=== PATIENT | female | born 1970 | race African-American/Black ===

== ENCOUNTER → 2020-09-06 15:33 | Outpatient (BNVA) | payer OTHER, SELFPAY | PROVIDERS: PCP Internal Medicine; Visit Provider Internal Medicine Pulmonary Disease | DX: R94.2 Abnormal results of pulmonary function studies (principal); R93.89 Abnormal findings on diagnostic imaging of other specified body structures; Z91.018 Allergy to other foods | CPT/HCPCS: 99202 ==

== ENCOUNTER 2021-01-16 13:33 | Outpatient (REF) | payer OTHER, SELFPAY ==
--- NOTE | ~2021-01-16 | XR_ITS ---
EXAMINATION: XR LUMBOSACRAL SPINE WITH OBLIQUES CLINICAL INFORMATION: Low back pain COMPARISON: CTA chest 05/13/2020 radiographs dorsal spine 07/03/2017 TECHNIQUE: Lumbar spine is imaged in 5 views: AP, lateral, lateral view coned to lumbosacral junction, and bilateral oblique. FINDINGS: There is normal lumbar segmentation with 5 nonrib-bearing lumbar vertebrae of normal height and normal lumbar lordosis. There is no lumbar vertebral compression, spondylolisthesis, disc narrowing, or destructive process. There are no erosive changes. The SI joints are unremarkable. Oblique views show no spondylolysis. There is a 0.7 cm calcification overlying mid left renal fossa and a 0.8 cm calcification overlying lower pole right renal fossa. Scattered calcified phleboliths are present in the pelvis. Bowel gas is unremarkable. XR/XR lumbar spine 4V min IMPRESSION: 1. No disc narrowing, vertebral compression, spondylolisthesis, or spondylolysis. 2. Suspect bilateral renal calculi.
== END 2021-01-16 13:34 | disposition home or self-care (01) ==
LOC: HO.XRAY 13:33
PROVIDERS: PCP Internal Medicine; Visit Provider Internal Medicine
DX: M54.5 Low back pain (principal)
CPT/HCPCS: 72110

== ENCOUNTER 2021-05-01 11:51 | Outpatient (REF) | payer OTHER, SELFPAY ==
--- NOTE | ~2021-05-01 | US_ITS ---
EXAMINATION: US RETROPERITONEAL LIMITED (RENAL ONLY) CLINICAL INFORMATION: Low back pain. COMPARISON: Ultrasound renals only dated 07/18/2017. TECHNIQUE: Real-time imaging of the kidneys. FINDINGS: RIGHT KIDNEY: 11.0 x 5.4 x 4.8 cm (SAG x AP x TRV). The kidney is normal in size, contour, and echogenicity. Renal cortical thickness is normal. No focal parenchymal lesions or hydronephrosis. There is nonobstructive echogenic stone lower pole measuring 1.1 x 0.4 cm LEFT KIDNEY: 10.5 x 6.0 x 4.8 cm (SAG x AP x TRV). The kidney is normal in size, contour, and echogenicity. Renal cortical thickness is normal. No focal parenchymal lesions or hydronephrosis. There are several echogenic foci are clustered together measuring 1.5 x 1.0 cm in midpole but no focal caliectasis seen. The bladder is unremarkable. US/US renal BI IMPRESSION: Nonobstructive echogenic lower pole right kidney and a cluster stones in the midpole left kidney but no caliectasis or hydronephrosis seen.
--- NOTE | ~2021-05-01 | MM_ITS ---
EXAMINATION: MM SCREENING DIGITAL BREAST TOMOSYNTHESIS, BILATERAL CLINICAL INFORMATION: Screening. Asymptomatic. The lifetime risk of breast cancer based on the Tyrer-Cuzick Model is 5.6%. COMPARISON: Mammography: April 26, 2020 and studies going back to July 21, 2014 TECHNIQUE: Digital breast tomosynthesis is performed in both the craniocaudal and mediolateral oblique views along with computer-aided detection (CAD). Synthesized 2D images are generated from the tomosynthesis. FINDINGS: The breasts are extremely dense, which lowers the sensitivity of mammography (ACR BI-RADS breast composition Category d). There is dense nodular breast parenchyma present with some bilateral well-circumscribed densities with cysts seen on previous ultrasound study of the left breast. No suspicious grouping of microcalcifications identified. No irregularly marginated mass is seen. MM/MM tomosynthesis screening BI IMPRESSION: There are no significant changes from prior study. Circumscribed densities consistent with cysts. ASSESSMENT: BI-RADS 2: Benign RECOMMENDATION: Routine annual mammography screening. This patient's information was entered into a reminder system with a target due date for their next mammogram.
== END 2021-05-01 11:52 | disposition home or self-care (01) ==
LOC: HO.MAMMO 11:51
PROVIDERS: PCP Internal Medicine; Visit Provider Internal Medicine
DX: Z12.31 Encounter for screening mammogram for malignant neoplasm of breast (principal); N28.89 Other specified disorders of kidney and ureter; M54.5 Low back pain
CPT/HCPCS: 76775; 77063; 77067

== ENCOUNTER 2022-03-09 15:29 | Outpatient (REF) | payer OTHER, SELFPAY ==
--- NOTE | ~2022-03-09 | MR_ITS ---
MR CERVICAL SPINE WITHOUT IV CONTRAST CLINICAL INFORMATION: Cervicalgia/disc degeneration. COMPARISON: None TECHNIQUE: MRI of the cervical spine was obtained using routine sequences without contrast. FINDINGS: Straightening the cervical lordosis. Partially imaged rightward convex scoliotic curvature of the thoracic spine. The vertebral body heights are maintained. Mild disc volume loss at C5-C6 and C6-C7. There is no bone marrow edema. There are no acute fractures. The craniocervical junction is unremarkable. Cervical arterial flow voids are maintained. There are no cord signal changes. No significant extraspinal soft tissue findings. The partially imaged posterior fossa is unremarkable. C2-C3: Advanced left-sided facet arthropathy results in mild left-sided foraminal encroachment. C3-C4: Disc osteophyte without central canal stenosis. Uncovertebral joint hypertrophy and hypertrophic facet arthropathy result in mild bilateral foraminal encroachment. C4-C5: Slight annular disc bulge. No central canal stenosis and no foraminal stenosis. C5-C6: Disc osteophyte mildly narrows the central canal. Advanced left-sided uncovertebral joint hypertrophy and hypertrophic facet arthropathy result in severe left-sided foraminal stenosis. C6-C7: A shallow right paracentral disc protrusion mildly narrows the central canal. Advanced left-sided uncovertebral joint hypertrophy and hypertrophic facet arthropathy result in moderate to severe left-sided foraminal stenosis. C7-T1: A shallow central disc protrusion mildly narrows the central canal. No foraminal stenosis. Shallow disc protrusions at T1-T2, T2-T3, and T3-T4 mildly narrow the central canal at these levels. MR/MR cervical spine wo con IMPRESSION: Multilevel cervical spondylosis. Spondylitic changes result in severe left C5-C6 and moderate to severe left C6-C7 foraminal stenosis.
== END 2022-03-09 15:30 | disposition home or self-care (01) ==
LOC: HO.MRI 15:29
PROVIDERS: Visit Provider Internal Medicine
DX: M50.30 Other cervical disc degeneration, unspecified cervical region (principal); M54.9 Dorsalgia, unspecified
CPT/HCPCS: 72141

== ENCOUNTER 2022-05-02 15:09 | Outpatient (REF) | payer OTHER, SELFPAY ==
--- NOTE | ~2022-05-02 | MM_ITS ---
EXAMINATION: MM SCREENING DIGITAL BREAST TOMOSYNTHESIS, BILATERAL CLINICAL INFORMATION: Screening. Asymptomatic. The lifetime risk of breast cancer based on the Tyrer-Cuzick Model is 6%. COMPARISON: Mammography: 05/01/2021, 04/26/2020, 12/17/2018, targeted left breast ultrasound 04/16/2019. TECHNIQUE: Digital breast tomosynthesis is performed in both the craniocaudal and mediolateral oblique views along with computer-aided detection (CAD). Synthesized 2D images are generated from the tomosynthesis. FINDINGS: The breasts are heterogeneously dense, which may obscure small masses (ACR BI-RADS breast composition Category c). There are no significant masses, abnormal calcifications, or other abnormalities. Parenchymal pattern is similar to prior studies. There are scattered benign round calcifications in each breast. Intramammary node again seen posterior outer left breast on CC view and there is biopsy clip marker mid upper outer left breast. MM/MM tomosynthesis screening BI IMPRESSION: No mammographic evidence of malignancy. ASSESSMENT: BI-RADS 2: Benign RECOMMENDATION: Routine annual mammography screening. This patient's information was entered into a reminder system with a target due date for their next mammogram.
== END 2022-05-02 15:10 | disposition home or self-care (01) ==
LOC: HO.MAMMO 15:09
PROVIDERS: PCP Internal Medicine; Visit Provider Internal Medicine
DX: Z12.31 Encounter for screening mammogram for malignant neoplasm of breast (principal)
CPT/HCPCS: 77063; 77067

== ENCOUNTER 2023-05-08 10:21 | Outpatient (REF) | payer MEDICAID, SELFPAY ==
--- NOTE | ~2023-05-08 | MM_ITS ---
EXAMINATION: MM SCREENING DIGITAL BREAST TOMOSYNTHESIS, BILATERAL CLINICAL INFORMATION: Screening. Asymptomatic. The lifetime risk of breast cancer based on the Tyrer-Cuzick Model is 5.6%. COMPARISON: Mammography: This study is compared with prior exams dating back to 2019. TECHNIQUE: Digital breast tomosynthesis is performed in both the craniocaudal and mediolateral oblique views along with computer-aided detection (CAD). Synthesized 2D images are generated from the tomosynthesis. FINDINGS: The breasts are heterogeneously dense, which may obscure small masses (ACR BI-RADS breast composition Category c). There are no significant masses, abnormal calcifications, or other abnormalities. There is a tissue marker in the upper outer quadrant of the left breast from prior benign percutaneous biopsy. MM/MM tomosynthesis screening BI IMPRESSION: No mammographic evidence of malignancy. ASSESSMENT: BI-RADS BI-RADS 2 - Benign Findings RECOMMENDATION: Routine annual mammography screening. 1 year F/U This examination should not preclude the clinical evaluation of a suspicious palpable abnormality. This patient's information was entered into a reminder system with a target due date for their next mammogram.
== END 2023-05-08 10:22 | disposition home or self-care (01) ==
LOC: HO.MAMMO 10:21
PROVIDERS: PCP Internal Medicine; Visit Provider Internal Medicine
DX: Z12.31 Encounter for screening mammogram for malignant neoplasm of breast (principal)
CPT/HCPCS: 77063; 77067

== ENCOUNTER → 2023-05-08 10:30 | Outpatient (BNV) | payer MEDICAID, SELFPAY | PROVIDERS: PCP Internal Medicine; Visit Provider Radiology Diagnostic Radiology | DX: Z12.31 Encounter for screening mammogram for malignant neoplasm of breast (principal) | CPT/HCPCS: 77063; 77067 ==

== ENCOUNTER 2023-09-18 09:33 | Outpatient (REF) | payer MEDICAID, SELFPAY ==
[2023-09-18 11:45] LABS: Anion Gap 12 (12-20); Blood Urea Nitrogen 9 mg/dL (9-16); Calcium 9.7 mg/dL (8.4-10.2); Carbon Dioxide 29 mmol/L (22-29); Chloride 104 mmol/L (96-108); Estimated Glomerular Filt Rate > 60; Glucose Random 116 mg/dL (60-115); Sodium 141 mmol/L (135-145)
[2023-09-18 11:54] LABS: Cholesterol 199 mg/dL (<200); HDL Cholesterol 56 mg/dL (>40); LDL Cholesterol Calculated 129 mg/dL (<100); Triglycerides 70 mg/dL (<150)
[2023-09-18 12:14] LABS: Vitamin D 25-OH Total 21.7 ng/mL (>30)
[2023-09-18 12:24] LABS: Creatinine Urine 69.21 mg/dL; Microalbumin Urine < 5.0 mg/L
[2023-09-18 12:53] LABS: Reflex LDLD? No
== END 2023-09-18 09:34 | disposition home or self-care (01) ==
LOC: HO.HHCL 09:33
PROVIDERS: Visit Provider Internal Medicine
DX: E11.9 Type 2 diabetes mellitus without complications (principal); I10 Essential (primary) hypertension
CPT/HCPCS: 36415; 80048; 80061; 82043; 82306; 82570

== ENCOUNTER 2024-05-13 10:28 | Outpatient (REF) | payer MEDICAID, SELFPAY ==
--- NOTE | ~2024-05-13 | MM_ITS ---
EXAMINATION: MM SCREENING DIGITAL BREAST TOMOSYNTHESIS, BILATERAL CLINICAL INFORMATION: Screening. Asymptomatic. COMPARISON: Mammography: This study is compared with prior exams dating back to 2019. TECHNIQUE: Digital breast tomosynthesis is performed in both the craniocaudal and mediolateral oblique views along with computer-aided detection (CAD). Synthesized 2D images are generated from the tomosynthesis. FINDINGS: There are scattered areas of fibroglandular density (ACR BI-RADS breast composition Category b). There are no significant masses, abnormal calcifications, or other abnormalities. There is a biopsy tissue marker in the left breast. MM/MM tomosynthesis screening BI IMPRESSION: No mammographic evidence of malignancy. ASSESSMENT: BI-RADS BI-RADS 2 - Benign Findings RECOMMENDATION: Routine annual mammography screening. 1 year F/U This examination should not preclude the clinical evaluation of a suspicious palpable abnormality. This patient's information was entered into a reminder system with a target due date for their next mammogram.
== END 2024-05-13 10:29 | disposition home or self-care (01) ==
LOC: HO.MAMMO 10:28
PROVIDERS: PCP Internal Medicine; Visit Provider Internal Medicine
DX: Z12.31 Encounter for screening mammogram for malignant neoplasm of breast (principal)
CPT/HCPCS: 77063; 77067

== ENCOUNTER → 2024-05-13 10:30 | Outpatient (BNV) | payer MEDICAID, SELFPAY | PROVIDERS: PCP Internal Medicine; Visit Provider Radiology Diagnostic Radiology | DX: Z12.31 Encounter for screening mammogram for malignant neoplasm of breast (principal) | CPT/HCPCS: 77063; 77067 ==

== ENCOUNTER 2025-02-24 12:11 | Outpatient (AMB) | payer MEDICAID, SELFPAY ==
--- NOTE | 2025-02-24 12:18 | MHC.OFFVIS ---
Vital Signs 02/24/25 12:23 Height 5 ft 5 in Weight 147 lb BMI 24.5 BP 123/74 Blood Pressure Location Lt brachial Position Sitting Pulse 82 Intake Visit Reasons: [place] screening Intake Note: New consult for 1st pre Colonoscopy screening. Patient denies any GI issues. It Engineer Required: Yes It Engineer Name: [facility] [place] Accompanied by: Self / Same As Patient Allergies sesame seed [SESAME SEED] Allergy (Unknown, Verified 02/24/25 12:19) ANAPHYLAXIS Medication List - Last Reconciled 02/24/25 by Che Comer CNP ibuprofen 400 mg PO Q8H lisinopril 10 mg PO DAILY HPI HPI [place] screening: Details: Patient is a 54-year-old female with PMH of hypertension, DMII and insomnia. She was referred by her PCP for colonoscopy screening. Pt is here today for index colonoscopy pre-screening. She denies any GI symptoms/concerns. Shares her BP is well controlled with anti-hypertensive. States she is now considered pre-diabetes after lifestyle changes Patient denies: fever/chills, n/v, appetite changes, regurgitation, unintentional wt loss, ab pain, dysphasia, or melena/hematochezia. Social hx: socially-typically 1 beer denies recreational drug use non-smoker family hx -denies colon CA hx of FDR -Maternal Aunt, passed from vaginal CA -sister, passed from breast CA denies personal hx of CA denies significant cardiopulmonary history tolerated anesthesia in the past without difficulty. [facility] Medical History (Updated 02/24/25 @ 13:11 by Che Comer CNP) Diabetes Hypertension Encounter for screening colonoscopy Family History (Updated 02/24/25 @ 13:21 by Che Comer CNP) Maternal Aunt Recurrent vaginal squamous cell carcinoma Sister Breast cancer Social History (Updated 02/24/25 @ 13:22 by Che Comer CNP) Patient Tobacco Use Status: Never used Tobacco Review of Systems Const Reports as per HPI ENT Reports as per HPI Card Reports as per HPI Resp Reports as per HPI GI Reports as per HPI Reports as per HPI Physical Exam Vital Signs: Last Vital Signs Pulse 82 02/24/25 12:23 BP 123/74 02/24/25 12:23 BMI result Body Mass Index 24.5 Const General: healthy appearing, no acute distress and well developed Nutritional Appearance: well nourished Orientation/consciousness: patient oriented x3 HEENT Head: Yes normal to inspection, Yes normocephalic and Yes atraumatic Face and sinus: Yes normal facial exam Eyes General: appearance normal, both eyes and all related structures Neck Neck: Yes normal visual inspection Resp Effort & Inspection: normal respiratory effort, able to speak in complete sentences, no tracheal deviation and symmetric chest movement Auscultation: clear to auscultation bilaterally Cardio Jugular venous distension: no JVD Rate: regular rate Rhythm: regular rhythm Heart sounds: S1 normal heart sound present, S2 normal heart sound present, no gallops and no murmurs GI Inspection: Yes normal to inspection and No distended Palpation (GI): Soft to palpation, not firm, nontender and No hepatosplenomegaly present Auscultation: normal bowel sounds Neuro General: patient oriented x3 Gait exam (Neuro): Normal gait present Psych Appearance: grossly normal Mental Status: mental status grossly normal Speech and movement: Normal speech and movement present Affect: normal affect Attitude: cooperative Thought process: Normal thought process present Thought content: Normal thought content present Insight: Good insight present (Psych) Judgement: Good judgement present (Psych) Assessment & Plan Assessment & Plan (1) Encounter for screening colonoscopy: Code(s): Z12.11 - Encounter for screening for malignant neoplasm of colon Category: Medical Plan: She is asymptomatic. Due for index screening colonoscopy. Reviewed prep and procedure expectations. She understands to hold ibuprofen at least 7 days before procedure. Prep Rx'd to preferred pharmacy. (2) Hypertension: Code(s): I10 - Essential (primary) hypertension Category: Medical Qualifiers: Hypertension type: unspecified Qualified Code(s): I10 - Essential (primary) hypertension Plan: BP at goal per guidelines. Continue lisinopril 10 mg. Risks reviewed of taking NSAIDs with hypertension diagnosis. Encouraged to consider Tylenol Arthritis instead. Managed by PCP. (3) Diabetes: Code(s): E11.9 - Type 2 diabetes mellitus without complications Category: Medical Qualifiers: Diabetes mellitus type: type 2 Diabetes mellitus termite exterminator insulin use: without termite exterminator use Diabetes mellitus complication status: without complication Qualified Code(s): E11.9 - Type 2 diabetes mellitus without complications Plan: Per PCP referral note A1c 6.08 December 2023. Managed by PCP. Plan Follow-up after colonoscopy or sooner as needed. Time: I spent a total of 45 minutes on the date of encounter which includes: Preparing to see the patient (reviewed previous documentation, test results and medical history) Performing a medically appropriate exam and/or evaluation Ordering medications, tests, and procedures Documenting clinical information in the health record Medications: New bisacodyl per colonoscopy instructions 5 mg PO ONCE 1 day 3 tabs 0RF polyethylene glycol 3350 (Miralax) per colonoscopy prep instructions 238 grams PO ONCE 238 grams 0RF Coding Level of Care Code New Pt Est Pt Level 3 (07785) Patient Type New Diagnoses Encounter for screening colonoscopy Z12.11 Hypertension, unspecified type I10 Hypertension type: unspecified Type 2 diabetes mellitus without complication, without long-term current use of insulin E11.9 Diabetes mellitus type: type 2 Diabetes mellitus snf insulin use: without termite exterminator use Diabetes mellitus complication status: without complication
[2025-02-24 12:23] VITALS: BP 123/74; PULSE 82; BMI 24.5
--- OUTSIDE RECORDS SUMMARY | 2025-02-24 14:30 | XMS_ITS | Encounter Summary ---
Author Organization [facility] Address [address] [place] [address] Care Team Providers Care Roller Inspector And Mender Name Role Phone Faith Malcolm MD Primary Care Provider + Tony Jensen PharmD Unavailable [phone] Encounter Details Date Type Department Care Team (Latest Contact Info) Description 11/11/2019 Abstract [facility] Dental, Provider, DDS Social History Tobacco Use Types Packs/Day Years Used Date Smoking Tobacco: Never Assessed Comments Unknown Sex and Gender Information Value Date Recorded Sex Assigned at Female 09/03/2022 10:31 AM EDT Legal Sex Female 10:31 AM EDT Gender Identity Female 09/03/2022 10:31 AM EDT Sexual Orientation Straight 09/03/2022 10 :31 AM EDT documented as of this encounter Plan of Treatment Upcoming Encounters Date Type Department Care Team ( st Contact Info) Description 03/09/2025 1:45 PM EDT Procedure Visit [facility] [address] [place] [phone] Korina Herbert CNM [address] [place] [phone] 05/18/2025 9:00 AM EDT Telemedicine [facility] [address] [place] [phone] Faith Malcolm MD [address] [place] [phone] documented as of this encounter Visit Diagnoses Not on filedocumented in this encounter Care Teams Roller Inspector And Mender Relationship Specialty Start Date End Date Faith Malcolm MD [address] [place] [address] PCP - General Family Medicine 11/13/16 Tony Jensen, DamionD [address] [place] [address] Pharmacist Internal Medicine 08/14/23 documented as of this encounter
--- OUTSIDE RECORDS SUMMARY | 2025-02-24 14:30 | XMS_ITS | Clinical Summary ---
Author Organization [employer] Address [address] [place] [address] Care Team Providers Care Commercial Driver Name Role Phone Zulay Malcolm MD Primary Care Provider + Tony Jensen PharmD Unavailable [phone] Allergies Active Allergy Reactions Criticality Noted Date Comments Sesame Seed Extract Allergy Skin Test Swelling High 01/13/2018 Throat swelling Medications acetaminophen (Tylenol) 500 MG tablet take 1 tablet by oral route every6 -8 hours as needed not to exceed 4 tablets per 24hrs 09/27/20 21 Active glucose blood (FREESTYLE LITE) test strip 06/27/20 20 Active latanoprost (Xalatan) 0.005 % ophthalmic solution PONGA NATIVIDAD GOTA EN LOS DOS OJOS AL ACOSTARSE 07/25/20 23 Active timolol (Timoptic) 0.5 % ophthalmic solution INSTILL 1 DROP BOTH EYES CADA MA ZULAY 12/27/19 24 Active traZODone (Desyrel) 50 MG tabletIndicatio ns:Adjustment insomnia Take 1/2 tab po Q 5pm and 1 tab po QHS 45 tablet 2 03/10/20 24 Active lisinopril 10 MG tabletIndicatio ns:Primary hypertension Take 1 tablet (10 mg) by mouth Once per day. 90 tablet 3 06/10/20 24 025 Active albuterol 108 (90 Base) MCG/ACT inhaler Inhale 2 puffs every 6 (six) hours if needed for wheezing. 18 g 10/12/20 24 025 Active fluticasone (Flonase) 50 MCG/ACT nasal spray Administer 1 spray into each nostril Once per day. 16 g 2 02/05/20 25 025 Active ibuprofen 600 MG tablet Take 1 tablet (600 mg) by mouth every 8 (eight) hours if needed for mild pain. 90 tablet 02/05/20 25 Active EPINEPHrine (EpiPen 2-Kasi) 0.3 MG/0.3ML injection syringe Inject 0.3 mL (0.3 mg) as directed 1 (one) time for 1 dose. 2 each 2 02/06/20 25 Active Blood Pressure kitIndications: Primary hypertension Used as directed 1 kit 02/06/20 25 Active EPINEPHrine (EpiPen 2-Kasi) 0.3 MG/0.3ML injection syringe Inject 0.3 mL (0.3 mg) as directed 1 (one) time for 1 dose. 0.3 mL 10/04/20 23 025 Discontinued(R eorder (will not trigger notification to Pharmacy)) ibuprofen 600 MG tablet TAKE 1 TAB EVERY 8 HOURS NEEDED FOR PAIN WITH FOOD AND NO ALCOHOL DIRECTED 02/21/20 24 025 Discontinued(R eorder (will not trigger notification to Pharmacy)) Active Problems Problem Noted Date Diagnosed Date Nasal congestion 02/04/2025 Assessment & Plan (02/04/2025 11:30 AM EDT): Most likely postnasal drip status post URI Use Flonase nightly and nasal saline as needed Screening for colorectal cancer 06/10/2024 Assessment & Plan (02/04/2025 11:28 AM EDT): She had a referral was sent last year, given information regarding GI office to make an appointment for colonoscopy Assessment & Plan (06/10/2024 2:58 PM EDT): - we dicussed about vascular colonoscopy vs cologuard, she agreed to be referred to colonoscopy - refer to GI Accessory breast tissue of axilla 06/10/2024 Assessment & Plan (06/10/2024 2:52 PM EDT): - reassurance, no evidence of abnormal lesions or LN - pt will re consult PRN to the walk-in clinic Mass of left axilla 03/10/2024 Assessment & Plan (03/10/2024 9:54 AM EDT): - unclear if it is related to subcutaneous nodule verus breast mass verus folliculitis - advised pt to come for further evaluation at walk-in clinic Adjustment insomnia 10/04/2023 Assessment & Plan (03/10/2024 9:51 AM EDT): - normally controled, discussed regarding sleep hygiene: drink warm beverages, take hot showers, and avoiding action TV series at bedtime. - pt will start Trazodone 25 mg at 5 pm to decrease anxiety and continue 50 mg at bedtime and f/u in 3 months. - she will check BP at home Glaucoma 07/05/2023 Restrictive lung disease 04/25/2023 Spinal stenosis in cervical region 04/25/2023 Nephrocalcinosis 04/25/2023 Primary hypertension 10/19/2022 Assessment & Plan (02/04/2025 11:26 AM EDT): Controlled. Compliant w/meds Continue lisinopril same dose Counseled re low salt diet/increase moderate physical activity. Check home BP BIW and prn CP/PARKER/LAURENT Non smoking patient. Follow-up in 6 months with labs Assessment & Plan (10/13/2024 8:20 PM EST): Controlled. Compliant w/meds Continue lisinopril same dose Counseled re low salt diet/increase moderate physical activity. Check home BP BIW and prn CP/PARKER/LAURENT Non smoking patient. FU in 4-6m Assessment & Plan (06/10/2024 2:50 PM EDT): Controlled. Compliant w/meds Continue lisinopril same dose Counseled re low salt diet/increase moderate physical activity. Check home BP BIW and prn CP/PARKER/LAURENT Non smoking patient. Assessment & Plan (02/03/2024 11:11 AM EDT): Pt's BP is at goal. Continue Lisinopril 10 mg once daily Counseled re low salt diet/increase moderate physical activity. Check home BP BIW and prn CP/PARKER/LAURENT Non smoking patient. Assessment & Plan (10/04/2023 12:03 PM EST): Controlled. Counseled re low salt diet/increase moderate physical activity. Check home BP BIW and prn CP/PARKER/LAURENT Non smoking patient. Assessment & Plan (06/14/2023 12:26 PM EDT): Controlled. Counseled re low salt diet/increase moderate physical activity. Check home BP BIW and prn CP/PARKER/LAURENT Non smoking patient. Continue lisinopril same dose FU with me in 4 months Assessment & Plan (04/26/2023 12:08 PM EDT): Stage 1. Not controlled. Continue lisinopril 10mg for now and stressed importance of lifestyle modifications, information given to patient. Counseled re low salt diet/increase moderate physical activity. Check home BP BIW and prn CP/PARKER/LAURENT Non smoking patient. FU with me in 2 months Assessment & Plan (01/03/2023 1:14 PM EST): Most likely uncontrolled. Concern about home bp readings with large variation. Pt will bring BP machine to the pharmacy and have it checked, may need a replacement. Check BP at home TIW and refer to [facility] clinic. FU with me in 3 months. Continue lisinopril 10mg Counseled re low salt diet/increase moderate physical activity. Check home BP BIW and prn CP/PARKER/LAURENT Non smoking patient. Assessment & Plan (10/19/2022 2:54 PM EST): Bot optimally controlled, it may be going higher at home. Increase lisinopril to 10mg and fu w me in 2m Counseled re low salt diet/increase moderate physical activity. Check home BP BIW and prn CP/PARKER/LAURENT Non smoking patient. Order labs prior to next appt w me Kidney stone 10/12/2022 Assessment & Plan (02/04/2024 4:21 PM EDT): Left side done, Right ESWL pending in 2-3 weeks. FU with urology Assessment & Plan (01/06/2024 9:17 AM EST): I discussed risk/benefits of surgery vs no procedure. We discussed about LOW chances of spontaneous expulsion of the stone given its size of >1cm and risk of hydronephroses/RF? Patient will fu with urology, she'll take meds with her and they will arrange for preop if needed. We'll consider dc gabapentin at next RV (for LBP) Neck pain 10/12/2022 Atelectasis 10/12/2022 Primary insomnia 10/12/2022 Assessment & Plan (02/04/2025 11:27 AM EDT): Doing well on trazodone. Advised to have a nightly snack that have small portion of protein (string cheese, peanut butter, cottage cheese), check fingerstick when she wakes up at 3 to 4 AM Assessment & Plan (06/10/2024 4:21 PM EDT): - doing well - advised to cut down on the use of Valerian tea as she is known to have some effects similar to benzos, and use Trazodone PRN instead Assessment & Plan (02/03/2024 11:07 AM EDT): R/o hperglycemia or hypertension at night. Check fingerstick and BP at home and will f/u next month Continue Trazodone 50 mg at bedtime Discussed about sleep hygiene. Counseled about anxiety, CBT and follow up next month. Type 2 diabetes mellitus without complication Assessment & Plan (02/04/2025 11:26 AM EDT): Controlled. FU A1c in 3m Continue on dietary management Counseled re more frequent low calorie/carb meals. Check fgstk 1x daily Encouraged physical activity as tolerated. FU in 4 months. Eye exam is overdue, advised to schedule appointment with eye and LASIK clinic She declined influenza or COVID immunization today Assessment & Plan (10/13/2024 8:21 PM EST): Controlled. A1c is at goal. Counseled re more frequent low calorie/carb meals. Check fgstk once daily Encouraged physical activity as tolerated. FU in 4-5 months. Declined Covid and Flu vax,advised to get them done at earliest convenience Assessment & Plan (06/10/2024 2:58 PM EDT): Controlled. A1c is at goal. Counseled re more frequent low calorie/carb meals. Check fgstk once daily Encouraged physical activity as tolerated. FU in 3-4 months. Assessment & Plan (02/03/2024 11:03 AM EDT): Controlled. A1c is at goal. Counseled re more frequent low calorie/carb meals. Check fgstk once daily Encouraged physical activity as tolerated. FU in 3 months. Assessment & Plan (10/04/2023 12:03 PM EST): Controlled. A1c is at goal. Counseled re more frequent low calorie/carb meals. Check fgstk once daily Encouraged physical activity as tolerated. FU in 4 months. Counseled to have a Covid booster TAYLA Assessment & Plan (06/14/2023 12:25 PM EDT): Controlled. A1C is at goal. Continue nonpharmicological management Counseled re more frequent low calorie/carb meals. Encouraged physical activity as tolerated. Assessment & Plan (04/26/2023 12:08 PM EDT): Unclear if it is uncontrolled. Discussed with patient importance of checking fingerstick daily Counseled re more frequent low calorie/carb meals. Check fgstk daily Encouraged physical activity as tolerated. FU in 2 months and check A1C Assessment & Plan (01/03/2023 1:16 PM EST): Controlled. A1C is at goal. Continue off medications. Counseled re more frequent low calorie/carb meals. Encouraged physical activity as tolerated. History of vaginal hysterectomy 10/14/2019 Pharyngeal hemorrhage 04/02/2019 Degeneration of cervical intervertebral disc 07/2018 Assessment & Plan (01/03/2023 1:15 PM EST): Pt with partial improvement of neck pain. recommended acupuncture, continue tizanidine TID + ibuprofen alternating with tylenol can use lidocaine patch PRN arm numbness aggred to be referred to PT, FU with me in 3 months Assessment & Plan (10/19/2022 2:52 PM EST): Improving Continue home base exercises. Take tylenol prn and gabapentin bid x 1-2w when sxs restart. Declined further PT referral at this time May try acupuncture when she [place] Spasm of cervical paraspinous muscle 04/29/2018 Chronic low back pain 07/04/2017 Vitamin D deficiency 01/03/2017 Assessment & Plan (10/04/2023 12:02 PM EST): Restart Vitamin-D supplementation x 6 m Encouraged outdoor exercise. Assessment & Plan (10/19/2022 2:56 PM EST): Started on Vit D, will fu labs in 6m Chronic thoracic back pain 01/03/2017 Right foot pain 11/05/2016 Overview (10/12/2022): [facility] 2015: PT and brace Resolved Problems Problem Noted Date Diagnosed Date Resolved Date Atypical chest pain 10/12/2022 02/03/20 24 Hypokalemia 10/12/2022 02/03/2024 Rash 10/12/2022 02/03/2024 IFG (impaired fasting glucose) 01/03/2017 02/03/2024 Assessment & Plan (10/19/2022 2:55 PM EST): A1c is at goal. I have discussed with patient regarding increasing physicial activity and decrease calorie intake I'll check FBS with next set of labs. To check RBS at next visit. FU in 6m SOB (shortness of breath) 03/29/2016 Overview (10/12/2022): Juliet CXR negative in 2015. Encounters Date Type Department Care Team Description 02/16/2025 Telephone [facility] [address] [place] [phone] Zulay Malcolm MD May recall 02/12/[address] [address] Zulay Malcolm MD Referral 02/05/2025 Refill [facility] [address] [place], [place] [phone] Zulay Malcolm MD Primary hypertension 02/04/2025 11:15 AM EDT Office Visit [address] [address] Zulay Malcolm MD Type 2 diabetes mellitus without complication, without long-term current use of insulin ([facility]) (Primary Dx); Primary insomnia; Nasal congestion; Primary hypertension; Screening for colorectal cancer 02/04/2025 Travel 02/02/[address] [address] Zulay Malcolm MD Chart prep 01/26/2025 Patient Outreach [address] [phone] Teresa Polk Pre-visit Planning (SDOH screening negative and tobacco screening negative) 01/15/2025 Population Health Risk Score [facility] () Department [address] [place] [phone] Provider, Population Health Generic 12/04/[address] [address] Zulay Malcolm MD February recall from Last 3 Months Immunizations Name Administration Dates Next Due HepB-CpG 06/02/2024,04/01/2024 Influenza Injectable Quadriv alant Preservative Free IIV4 MDCK 09/18/2023 Influenza injectable quadrivalent preservative f ree 10/19/2022,10/18/2020 Pfizer Covid-19 Vaccine 12+ london-sucrose (Lyon C ap) 01/23/2022 Pneumococcal Conjugate PCV 20 04/01/2024 Tdap 01/02/2024 Zoster, Recombinant 01/02/2024,09/18/2023 Social History Tobacco Use Types Packs/Day Years Used Date Smoking Tobacco: Never Smokeless Tobacco: Never Tobacco Cessation:Counseling Given: Not Answered Alcohol Use Standard Drinks/Week Comments Yes 0 (1 standard drink = 0.6 oz pur e alcohol) oca Alcohol Answer Date Recorded Frequency of Alcohol Consumption Not on file 02/03/2024 Average Number of Drinks Not on file 024 Frequency of Binge Drinking Not on file 11/2023 Score 0 02/03/2024 Depression Answer Date Recorded Patient Health Questionnaire-9 Score 0 02/03/2024 Patient Health Questionnaire-9 Score 0 02/03/2024 Last PHQ-9: Questionnaire Data Not on file 0 02/03/2024 Housing Stability Answer Date Recorded What is your housing situation today? I have alex ortega 05/28/[address] you li ve. Do you have problems with any of the following? None of the above 05/28/2024 Food Insecurity Answer Date Recorded Within the past 12 months, y ou worried that your food would run out before you got money to buy more: Never True 05/28/2024 Within the past 12 months,th e food you bought just didn't last and you didn't have enough money to get more: Never True Transportation Answer Date Recorded In the past 12 months, has l ack of transportation kept you from medical appts, meetings, work or from getting things needed for daily living? No 05/28/2024 Utilities Answer Date Recorded In the past 12 months, has t he electric, gas, oil or water company threatened to shut off services in your home? No 05/28/2024 Depression Answer Date Recorded Patient Health Questionnaire-2 Score 0 02/04/2025 Internet Access Answer Date Recorded Internet Access Q1 Yes 01/26/2025 Internet Access Q2 I do not want or need it 01/03 Comments Unknown Sex and Gender Information Value Date Recorded Sex Assigned at Female 09/03/2022 10:31 AM EDT Legal Sex Female 10:31 AM EDT Gender Identity Female 09/03/2022 10:31 AM EDT Sexual Orientation Straight 09/03/2022 10 :31 AM EDT Last Filed Vital Signs Vital Sign Reading Time Taken Comments Blood Pressure 127/80 02/04/2025 10:55 AM EDT Pulse 86 02/04/2025 10:55 AM EDT Temperature 35.7 ??C (96.2 ??F) 02/04/2025 10:55 AM E DT Respiratory Rate 20 02/04/2025 10:55 AM EDT Oxygen Saturation 100% 02/04/2025 10:55 AM EDT Inhaled Oxygen Concentration - - Weight 69.6 kg (153 lb 8 oz) 02/04/2025 10:55 AM EDT Height 167.6 cm (5' 6 ) 02/04/2025 10:55 AM EDT Body Mass Index 24.78 02/04/2025 10:55 AM EDT Plan of Treatment Upcoming Encounters Date Type Department Care Team (Late st Contact Info) Description 03/09/2025 1:45 PM EDT Procedure Visit [facility] [address] [place] [phone] Korina Herbert CNM [address] [place] [address] 05/18/2025 9:00 AM EDT Telemedicine [facility] [address] [place] [phone] Zulay Malcolm MD [address] [place] [address] Health Maintenance Due Date Last Done Comments CT Colonography 1968 Colonoscopy 1968 Colorectal Cancer Screening 1968 FIT DNA/Cologuard 1968 FIT 1968 FOBT 1968 HIV Screening 1968 Sigmoidoscopy 1968 Eye Exam 1978 Alcohol/Substance Use Screening 1980 Hepatitis C Screening 1986 Pap Smear 04/02/2022 04/02/2019 Cervical Cancer Screening 04/02/2024 HPV/Cotest 04/02/2024 04/02/2019 COVID-19 Vaccine ( season) 2024 01/23/2022, 05/24/2021, 05/04/2021 Influenza Vaccine (#1) 2024 , 10/19/2022, 10/18/2020, Additional history exists Diabetes: Urine Protein Screening 09/18/2024 09/18/2023 Lipid Panel 09/18/2024 09/18/2023, 10/18/2020 Diabetes: Hemoglobin A1C 04/12/2025 024, 06/10/2024, 01/02/2024, Additional history exists Mammogram 05/13/2025 05/13/2024, 0703/2023, 05/08/2023, Additional history exists Diabetes: Foot Exam 10/12/2025 10/12/2024, 10/12/2024, 10/12/2024, Additional history exists SDOH Screening 01/26/2026 01/26/2025 Depression Screening 02/04/2026 02/04/2025, 02/03/20 Tobacco Screening 02/04/2026 02/04/2025 DTaP/Tdap/Td Vaccines (2 - Td or Tdap) 01/01/2034 01/02/2024 RSV Patients and Patients Aged 60 years or older (1 - 1-dose 75+ series) 2043 Zoster Vaccines Completed 01/02/2024, 09/18/2023 Pneumococcal Vaccine: 50+ Years Completed 04/01/2024 Hepatitis B Vaccines Completed 06/02/2024, 04/01/20 24 HIB Vaccines Aged Out No longer eligi ble based on patient's age to complete this topic HPV Vaccines Aged Out No longer eligi ble based on patient's age to complete this topic Hepatitis A Vaccines Aged Out No long er eligible based on patient's age to complete this topic IPV Vaccines Aged Out No longer eligi ble based on patient's age to complete this topic Meningococcal Vaccine Aged Out No leesa francia eligible based on patient's age to complete this topic RSV under 20 months Aged Out No longe r eligible based on patient's age to complete this topic Rotavirus Vaccines Aged Out No longer eligible based on patient's age to complete this topic Goals Goal Patient Goal Type Associated Problems Recent Progress Patient-Stated? Author Blood Pressure < 140/90 Blood Pressure 127/80( 025 10:55 AM EDT) Tony Lake PharmD Procedures Procedure Name Priority Date/Time Associated Diagnosis Comments POCT GLUCOSE Routine 02/04/2025 11:01 AM EDT Type 2 diabetes mellitus without complication, without long-term current use of insulin ([facility]) POCT GLYCATED HEMOGLOBIN, TOTAL Routine 10/12/2024 3:19 PM EST Type 2 diabetes mellitus without complication, without long-term current use of insulin ([facility]) BI MAMMOGRAM SCREENING TOMOSYNTHESIS BILATERAL Routine 05/13/2024 10:45 AM EDT ALBUMIN, RANDOM URINE W/CREATININE Routine 09/18/2023 9:42 AM EST LIPID PANEL WITH REFLEX TO DIRECT LDL Routine 09/18/2023 9:38 AM EST Type 2 diabetes mellitus without complication, without long-term current use of insulin ([facility]) Primary hypertension ZZZ HISTORICAL HPV MRNA E6/E7 Routine 04/02/2019 9:59 AM EDT HM PAP/HPV Routine 04/02/2019 from Last 3 Months or Most Recently Relevant to Health Maintenance Results * POCT Glucose (02/04/2025 11:01 AM EDT) Glucose Blood, POC 123 60 - 200 mg/dL QC Media Lot # [id number] Lot# Expiration Date [id number] Blood Capillary blood specimen / Unknown 02/04/2025 11:01 AM EDT Zulay Malcolm MD POINT OF CARE TEST ENTER /EDIT ORDERABLES Final Result * (ABNORMAL) POCT HGB A1C (10/12/2024 3:19 PM EST) Hemoglobin A1C 6.3(A) 4.0 - 6.0 % QC Media Lot # [id number] Lot# Expiration Date [id number] Blood 10/12/2024 3:19 PM EST us Zulay Malcolm MD POINT OF CARE TEST ENTER /EDIT ORDERABLES Final Result * BI Mammogram Screening Tomosynthesis Bilateral (05/13/2024 10:45 AM EDT) Anatomical Region Laterality Modality Breast Bilateral Mammography 05/13/2024 10:4 5 AM EDT Narrative 06/08/2024 10:26 PM EDT ? [facility] ? [address] ?[place], [place] [address] ? Mammography Report ? Signed ? Patient: BrianVictoria Blount ?MR#: [id number] ?? 69 ? : 1970 ?Acct:[id number] ? Age/Sex: 53 / F ?ADM Date: 05/13/24 ? Loc: HO.MAMMO ? Attending Dr: Zulay Malcolm MD ? Ordering Physician: Zulay Malcolm MD ?Results: 2Be ?? nign Findings ? Date of Service: 05/13/24 ?Follow Up: 1 Year From Orig ?? inal Mammogram ? Procedure(s): MM tomosynthesis screening BI ?? Accession Number(s): [id number] ? cc: Zulay Malcolm MD ? EXAMINATION: ?? MM SCREENING DIGITAL BREAST TOMOSYNTHESIS, BILATERAL ? CLINICAL INFORMATION: ? Screening. Asymptomatic. ? COMPARISON: ?? Mammography: This study is compared with prior exams dating back to ?? 2019. ? TECHNIQUE: ?? Digital breast tomosynthesis is performed in both the craniocaudal and ?? mediolateral oblique views along with computer-aided detection (CAD). ?? Synthesized 2D images are generated from the tomosynthesis. ? FINDINGS: ?? There are scattered areas of fibroglandular density (ACR BI-RADS breast ?? composition Category b). ? There are no significant masses, abnormal calcifications, or other ?? abnormalities. ? There is a biopsy tissue marker in the left breast. ? MM/MM tomosynthesis screening BI ?? IMPRESSION: ?? No mammographic evidence of malignancy. ? ASSESSMENT: ? BI-RADS BI-RADS 2 - Benign Findings ? RECOMMENDATION: ?? Routine annual mammography screening. ? 1 year F/U ? This examination should not preclude the clinical evaluation of a ?? suspicious palpable abnormality. ? This patient's information was entered into a reminder system with a ?? target due date for their next mammogram. ? Dictated By: ?Annabella Araiza MD ? Signed By: ?<Electronically signed by Annabella Araiza MD in OV> ? 06/08/24 2222 ? DD/ 1045 ? TD/TT: ? Air Conditioning Mechanic: ? Procedure Note Seven, Image - 06/08/2024 [facility] [facility] [address] [place] [address] Mammography Report Signed Patient: Victoria Torres MMR#: [id number] 69 : 1970Acct:[id number] Age/Sex: 53 / FADM Date: 05/13/24 Loc: [facility] Attending Dr: Zulay Malcolm MD Ordering Physician: Zulay Malcolm MDResults: 2Be nign Findings Date of Service: 05/13/24Follow Up: 1 Year From Orig inal Mammogram Procedure(s): MM tomosynthesis screening BI Accession Number(s): [id number] cc: Zulay Malcolm MD EXAMINATION: MM SCREENING DIGITAL BREAST TOMOSYNTHESIS, BILATERAL CLINICAL INFORMATION: Screening. Asymptomatic. COMPARISON: Mammography: This study is compared with prior exams dating back to 2019. TECHNIQUE: Digital breast tomosynthesis is performed in both the craniocaudal and mediolateral oblique views along with computer-aided detection (CAD). Synthesized 2D images are generated from the tomosynthesis. FINDINGS: There are scattered areas of fibroglandular density (ACR BI-RADS breast composition Category b). There are no significant masses, abnormal calcifications, or other abnormalities. There is a biopsy tissue marker in the left breast. MM/MM tomosynthesis screening BI IMPRESSION: No mammographic evidence of malignancy. ASSESSMENT: BI-RADS BI-RADS 2 - Benign Findings RECOMMENDATION: Routine annual mammography screening. 1 year F/U This examination should not preclude the clinical evaluation of a suspicious palpable abnormality. This patient's information was entered into a reminder system with a target due date for their next mammogram. Dictated By: Annabella Araiza MD Signed By: <Electronically signed by Annabella Araiza MD in OV> 06/08/24 2222 DD/ 1045 TD/TT: Air Conditioning Mechanic: us Zulay Malcolm MD IMG BI PROCEDURES Final Result * Albumin, Random Urine W/Creatinine (09/18/2023 9:42 AM EST) Creatinine, Urine 69.21 mg/dL [facility] Microalbumin Urine <5.0 mg/L [facility] Microalbum Creatinine Ratio Ur TNP <30 ug/mg cr [facility] Comment:Unable to calculate albumin/creatinine ratio due to lowmicroalbumin or creatinine result. 09/18/2023 9:42 AM EST 09/18/2023 11:04 AM EST us Zulay Malcolm MD LAB URINE ORDERABLES Fin al Result [facility] [address] [place] [phone] * (ABNORMAL) Lipid Panel with Reflex to Direct LDL (09/18/2023 9:38 AM EST) Triglycerides 70 <150 mg/dL [facility] Comment:Desirable Triglyceri de: less than 150 mg/dLBorderline High Triglyceride 150-199 mg/dLHigh Triglyceride: 200-499 mg/dLVery High Triglyceride: greater than or equal to 5OO mg/dL Cholesterol 199 <200 mg/dL [facility] Comment:Desirable Cholestero l: less than 200 mg/dLBorderline High Cholesterol: 200-239 mg/dLHigh Cholesterol: greater than 239 mg/dL LDL Cholesterol Calculated 129(H) <100 mg/dL [facility] Comment:Desirable LDL: less than 100 mg/dLNear Optimal/Above Optimal LDL: 110- 129 mg/dLBorderline High LDL: 130-159 mg/dLHigh LDL: 160-189 mg/dLVery High LDL: greater than or equal to 190 mg/dL HDL Cholesterol 56 >40 mg/dL [facility] Comment:Desirable HDL: great er than 40 mg/dL Note: This HDL assay may give artificially low results in patients with liver disease. Blood 09/18/2023 9:38 AM EST 09/18/2023 11:04 AM EST us Zulay Malcolm MD LAB BLOOD ORDERABLES Fin al Result [facility] [address] [place] [address] [phone] * HPV mRNA E6/E7 (04/02/2019 9:59 AM EDT) HPV mRNA E6/E7 Not Detected NOT DETECTED [facility] Comment: This test was performed using the APTIMA(R) HPV Assay ([employer] This assay detects E6/E7 viral messenger RNA (mRNA) from 14 high-risk HPV types (16,18,31,33,35,39,45,51, 52,56,58,59,66,68). For additional information please refer to: http://education.questdiagnostics.com/faq/XPX242b2 (This link is being provided for informational/ educational purposes only.) The analytical performance characteristics of this assay have been determined by [employer] [place], [place]. The modifications have not been cleared or approved by the FDA. This assay has been validated pursuant to the CLIA regulations and is used for clinical purposes. Test Performed by [facility], [employer] [facility], [address] [place] [address] Moncho Tom M.D., Ph.D., Director of Laboratories , CLIA [id number] Please note: ??Effective 07/16/2016, HPV testing will be performed using [employer]'s APTIMA test which targets mRNA. Detecting mRNA instead of DNA, as in older methods, offers significant improvements in specificity. 04/02/2019 9:59 AM EDT Zulay Malcolm MD HISTORICAL/NON ORDERABLE LABS Final Result [facility] [address] * Pap Smear (04/02/2019) Pap smear performed Historical Provider HEALTH MAINTENANCE Final Result from Last 3 Months or Most Recently Relevant to Health Maintenance Insurance [facility] C3 HSN FULL Care Teams Commercial Driver Relationship Specialty Start Date End Date Zulay Malcolm MD [address] [place] [address] PCP - General Family Medicine 11/13/16 Tony Jensen, DamionD [address] [place] [address] Pharmacist Internal Medicine 08/14/23
--- OUTSIDE RECORDS SUMMARY | 2025-02-24 14:30 | XMS_ITS | Clinical Summary ---
Author Organization [facility] Address [address] [place] [address] Care Team Providers Care Career Technical Education Teacher Name Role Phone JanMain sorenson CALLIE Primary Care Provider [phone] Source Comments PLEASE NOTE, if this patient is a minor, it may be UNLAWFUL to discuss sensitive information that is contained in these records (such as FAMILY PLANNING, MENTAL HEALTH or SUBSTANCE ABUSE) with the minor patient's parent or other person without the patient's specific authorization.[facility] Allergies No known active allergies Medications meloxicam (MOBIC) 15 mg tabletIndicatio ns:Musculoskele krysta pain Take 1 Tab by mouth once daily. 30 Tab 3 6 Active capsaicin 0.025 % creamIndication s:Musculoskelet al pain Apply topically 3 (three) times daily. 45 g 2 6 Active Active Problems Problem Noted Date Diagnosed Date Right foot pain 11/05/2016 Overview (11/05/2016): [facility] 2015: PT and brace SOB (shortness of breath) 03/29/2016 Overview (03/29/2016): [facility] CXR negative in 2015. 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 Family History Medical History Relation Name Comments Diabetes Mother Hypertension Mother Relation Name Status Comments Father Mother Alive Social History Tobacco Use Types Packs/Day Years Used Date Smoking Tobacco: Never Alcohol Use Standard Drinks/Week Comments Yes 1 (1 standard drink = 0.6 oz pur e alcohol) socially beer Social Connections Answer Date Recorded Social Connections and Isolation 0 06/28/2019 Financial Resource Strain Answer Date R ecorded Financial Resource Strain 0 2018 Stress Answer Date Recorded Stress 0 06/28/2019 Physical Activity Answer Date Recorded Physical Activity 0 06/28/2019 Food Insecurity Answer Date Recorded Food 0 06/28/2019 Transportation Needs Answer Date Record ed Transportation 0 06/28/2019 Housing Stability Answer Date Recorded Housing 0 06/28/2019 Safety and Environment Answer Date Vargas rded Safety 0 06/28/2019 Utilities Answer Date Recorded Utilities 0 06/28/2019 Employment Answer Date Recorded Employment 0 06/28/2019 Comments No Sex and Gender Information Value Date Recorded Sex Assigned at Not on file Legal Sex Female 10:46 AM PDT Gender Identity Not on file Sexual Orientation Not on file Last Filed Vital Signs Vital Sign Reading Time Taken Comments Blood Pressure 130/90 03/29/2016 2:17 PM EDT Pulse 80 03/29/2016 2:17 PM EDT Temperature 37 ??C (98.6 ??F) 03/29/2016 2:17 PM EDT Respiratory Rate 16 03/29/2016 2:17 PM EDT Oxygen Saturation - - Inhaled Oxygen Concentration - - Weight 70.3 kg (155 lb) 03/29/2016 2:17 PM EDT Height 160 cm (5' 3 ) 03/29/2016 2:17 PM EDT Body Mass Index 27.46 03/29/2016 2:17 PM EDT Plan of Treatment Not on file Insurance [employer] [facility] Member Subscriber Plan / Payer (Ef fective 2015-Present) Name:Victoria Torres Relation to Subscriber:Self Name:Victoria Torres Payer ID:[id number] Group ID:Not on file Type:Shan Address: [address] [address] Care Teams Career Technical Education Teacher Relationship Specialty Start Date End Date Main White NP [address] [place] [address] [facility] - General 09/11/18
--- OUTSIDE RECORDS SUMMARY | 2025-02-24 14:30 | XMS_ITS | Encounter Summary ---
Author Organization [employer] Address [address] [facility] 7t [place] [address] Care Team Providers Care Home Mission Worker Name Role Phone Faith Malcolm MD Primary Care Provider + Tony Jensen PharmD Unavailable [phone] Reason for Visit * Reason Comments Med Refill Encounter Details Date Type Department Care Team (Late st Contact Info) Description 10/08/2023 Refill [facility] MEDICINE [address] [place], [place] [phone] Faith Malcolm MD [address] [place] [address] Adjustment insomnia Social History Tobacco Use Types Packs/Day Years Used Date Smoking Tobacco: Never Smokeless Tobacco: Never Alcohol Use Standard Drinks/Week Comments Yes 0 (1 standard drink = 0.6 oz pur e alcohol) oca PHQ-2 Answer Date Recorded Patient Health Questionnaire-2 Score 0 04/26/2023 Housing Stability Answer Date Recorded What is your housing situation today? I have alex ortega 08/28/[address] you li ve. Do you have problems with any of the following? None of the above 08/28/2023 Food Insecurity Answer Date Recorded Within the past 12 months, y ou worried that your food would run out before you got money to buy more: Never True 08/28/2023 Within the past 12 months,th e food you bought just didn't last and you didn't have enough money to get more: Never True Transportation Answer Date Recorded In the past 12 months, has l ack of transportation kept you from medical appts, meetings, work or from getting things needed for daily living? No 08/28/2023 Utilities Answer Date Recorded In the past 12 months, has t he electric, gas, oil or water company threatened to shut off services in your home? No 08/28/2023 Depression Answer Date Recorded Patient Health Questionnaire-2 Score 0 04/26/2023 Comments Unknown Sex and Gender Information Value [...] Description 03/09/2025 1:45 PM EDT Procedure Visit [facility] MEDICINE [address] [place] [phone] Korina Herbert CNM [address] [place] [phone] 05/18/2025 9:00 AM EDT Telemedicine [facility] MEDICINE [address] [place] [address] Faith Malcolm MD [address] [place] [address] [phone] documented as of this encounter Goals Goal Patient Goal Type Associated Problems Recent Progress Patient-Stated? Author Blood Pressure < 140/90 Blood Pressure 127/80( 025 10:55 AM EDT) No Tony Jensen, PharmAllie documented as of this encounter Visit Diagnoses Diagnosis Adjustment insomnia Insomnia, unspecified documented in this encounter Care Teams Home Mission Worker Relationship Specialty Start Date End Date Faith Malcolm MD [address] [place] [phone] PCP - General Family Medicine 11/13/16 Tony Jensen, DamionD [address] [place] [address] [phone] Pharmacist Internal Medicine 08/14/23 documented as of this encounter
--- OUTSIDE RECORDS SUMMARY | 2025-02-24 14:30 | XMS_ITS | Encounter Summary ---
Author Organization [employer] Address [address] [facility] 7[address] [place] [address] Care Team Providers Care Commercial Collector Name Role Phone Faith Malcolm MD Primary Care Provider + Tony Jensen PharmD Unavailable [phone] Reason for Visit * Reason Comments Med Refill Encounter Details Date Type Department Care Team (Late st Contact Info) Description 11/04/2024 Refill [facility] MEDICINE [address] [place], [place] [phone] Faith Malcolm MD [address] [place], [place] [phone] Social History Tobacco Use Types Packs/Day Years [...] Date Recorded Patient Health Questionnaire-2 Score 0 02/03/2024 Internet Access Answer Date Recorded Internet Access Q1 No 07/06/2024 Internet Access Q2 I do not want or need it 12/2023 Comments Unknown Sex and Gender Information Value [...] 1:45 PM EDT Procedure Visit [facility] MEDICINE [address] [place] [phone] Korian Herbert CNM [address] [place] [address] 05/18/2025 9:00 AM EDT Telemedicine [facility] MEDICINE [address] [place] [phone] Faith Malcolm MD [address] [place] [address] documented as of this encounter Goals Goal Patient Goal Type Associated Problems Recent Progress Patient-Stated? Author Blood Pressure < 140/90 Blood Pressure 127/80( 025 10:55 AM EDT) No Tony Jensen, PharmD documented as of this encounter Visit Diagnoses Not on filedocumented in this encounter Additional Health Concerns Assessment Noted Time PHQ-9 Depression Total Score: 0 02/03/20 24 10:39 AM EDT documented as of this encounter Care Teams Commercial Collector Relationship Specialty Start Date End Date Faith Malcolm MD [address] [place] [address] PCP - General Family Medicine 11/13/16 Tony Jensen PharmD [address] [place] [address] Pharmacist Internal Medicine 08/14/23 documented as of this encounter
== END 2025-02-24 13:02 | disposition home or self-care (01) ==
LOC: HO.HGI 12:12
PROVIDERS: PCP Internal Medicine; Visit Provider Nurse Practitioner Family
DX: Z12.11 Encounter for screening for malignant neoplasm of colon (principal); I10 Essential (primary) hypertension; E11.9 Type 2 diabetes mellitus without complications; Z01.818 Encounter for other preprocedural examination
CPT/HCPCS: 99204

== ENCOUNTER → 2025-02-24 12:11 | Outpatient (BNVA) | payer MEDICAID, SELFPAY | PROVIDERS: PCP Internal Medicine; Visit Provider Nurse Practitioner Family | DX: Z01.818 Encounter for other preprocedural examination (principal); I10 Essential (primary) hypertension; E11.9 Type 2 diabetes mellitus without complications | CPT/HCPCS: 99212 ==

== ENCOUNTER 2025-05-17 14:48 | Outpatient (REF) | payer MEDICAID, SELFPAY ==
--- OUTSIDE RECORDS SUMMARY | 2025-05-17 16:02 | XMS_ITS | Encounter Summary ---
Author Organization [employer] Address [address] [facility] [address] [place] [address] Care Team Providers Care Field Contractor Name Role Phone Faith Malcolm MD Primary Care Provider + Tony Jensen PharmD Unavailable [phone] Encounter Details Date Type Department Care Team (Latest Contact Info) Description 11/11/2019 Abstract [facility] CONVERSIONS Dental, Provider, DDS Social History Tobacco [...] Care Team (Late st Contact Info) Description 05/18/2025 9:00 AM EDT Telemedicine [facility] MEDICINE [address] [place] [address] Faith Malcolm MD [address] [place] [address] documented as of this encounter Visit Diagnoses Not on filedocumented in this encounter Care Teams Field Contractor Relationship Specialty Start Date End Date Faith Malcolm MD [address] [place] [address] PCP - General Family Medicine 11/13/16 Tony Jensen, PharmD [address] [place] [phone] Pharmacist Internal Medicine 08/14/23 documented as of this encounter
--- OUTSIDE RECORDS SUMMARY | 2025-05-17 16:02 | XMS_ITS | Clinical Summary ---
Author Organization [facility] Address [address] [place] [address] Care Team Providers Care Biology Research Assistant Name Role Phone JanMain sorenson CALLIE Primary Care Provider [phone] Source Comments PLEASE NOTE, if this patient [...] 2015. Hx of mammogram 03/04/2016 Overview (03/04/2016): [facility] 2014 negative Visit for gynecologic examination 01/16/2016 Overview (01/16/2016): [facility] MANAGER FINE DINING- 2 small fibroids per patient Family History [...] 80 03/29/2016 2:17 PM EDT Temperature 37 C (98.6 F) 03/29/2016 2:17 PM EDT Respiratory Rate 16 03/29/2016 2:17 PM EDT Oxygen Saturation - - Inhaled Oxygen Concentration - - Weight 70.3 kg (155 lb) 03/29/2016 2:17 PM EDT Height 160 cm (5' 3 ) 03/29/2016 2:17 PM EDT Body Mass Index 27.46 03/29/2016 2:17 PM EDT Plan of Treatment Not on file Insurance Private Company Care Teams Biology Research Assistant Relationship Specialty Start Date End Date Main White NP [address] [place] [address] [facility] - General 09/11/18
[2025-05-17 17:19] LABS: Alanine Aminotransferase 25 U/L (0-31); Albumin Level 4.7 g/dL (3.5-5.0); Alkaline Phosphatase 84 U/L (39-117); Anion Gap 12 (12-20); Aspartate Amino Transferase 27 U/L (5-31); Blood Urea Nitrogen 12 mg/dL (9-16); Calcium 9.6 mg/dL (8.4-10.2); Carbon Dioxide 30 mmol/L (22-29); Chloride 103 mmol/L (96-108); Cholesterol 193 mg/dL (<200); Estimated Glomerular Filt Rate > 60; HDL Cholesterol 59 mg/dL (>40); Potassium 4.0 mmol/L (3.3-5.1); Sodium 141 mmol/L (135-145); Total Protein 8.0 g/dL (6.5-8.0); Triglycerides 122 mg/dL (<150)
[2025-05-17 17:46] LABS: Reflex LDLD? No
== END 2025-05-17 14:49 | disposition home or self-care (01) ==
LOC: HO.HHCL 14:48
PROVIDERS: PCP Internal Medicine; Visit Provider Internal Medicine
DX: E11.9 Type 2 diabetes mellitus without complications (principal)
CPT/HCPCS: 36415; 80053; 80061; 82043; 82570

== ENCOUNTER 2025-05-21 08:51 | Outpatient (REF) | payer MEDICAID, SELFPAY ==
--- NOTE | ~2025-05-21 | MM_ITS ---
EXAMINATION: MM SCREENING DIGITAL BREAST TOMOSYNTHESIS, BILATERAL CLINICAL INFORMATION: Screening. Asymptomatic. COMPARISON: Comparison made to multiple prior, most recent May 13, 2024, and most remote July 21, 2014. TECHNIQUE: Digital breast tomosynthesis is performed in both the craniocaudal and mediolateral oblique views along with computer-aided detection (CAD). Synthesized 2D images are generated from the tomosynthesis. FINDINGS: BREAST COMPOSITION: The breasts are heterogeneously dense, which may obscure small masses (ACR BI-RADS breast composition Category c). RIGHT BREAST: No significant masses, suspicious calcifications or other abnormalities are seen. LEFT BREAST: Tissue marker from previous needle core biopsy. No significant masses, suspicious calcifications or other abnormalities are seen. MM/MM tomosynthesis screening BI IMPRESSION: BILATERAL BREASTS: Benign, no mammographic evidence of malignancy. Normal interval follow-up is recommended in 12 months. ASSESSMENT: BI-RADS 2 - Benign Findings RECOMMENDATION: Routine annual mammography screening. FOLLOW-UP: 1 year F/U This examination should not preclude the clinical evaluation of a suspicious palpable abnormality. This patient's information was entered into a reminder system with a target due date for their next mammogram. Electronically signed by: Arvind Brady MD 05/31/2025 01:20 PM EDT
--- OUTSIDE RECORDS SUMMARY | 2025-05-21 08:54 | XMS_ITS | Encounter Summary ---
Author Organization [employer] Address [address] [facility] [address] [place] [address] Care Team Providers Care Regional Engagement Consultant Name Role Phone Faith Malcolm MD Primary Care Provider + Toyn Jensen PharmD Unavailable [phone] Reason for Visit * Reason Comments Med Refill Encounter Details Date Type Department Care Team ([facility] st Contact Info) Description 11/04/2024 Refill [facility] MEDICINE [address] [place], [place] [phone] Faith Malcolm MD [address] [place], [place] [phone] Social History Tobacco Use Types Packs/Day Years [...] as of this encounter Plan of Treatment Not on file documented as of this encounter Goals Goal Patient Goal Type Associated Problems Recent Progress Patient-Stated? Author Blood Pressure < 140/90 Blood Pressure 137/78( 025 2:05 PM EDT) No Tony Jensen, Nolan documented as of this encounter Visit Diagnoses Not on filedocumented in this encounter Additional Health Concerns Assessment Noted Time PHQ-9 Depression Total Score: 0 02/03/20 24 10:39 AM EDT documented as of this encounter Care Teams Regional Engagement Consultant Relationship Specialty Start Date End Date Faith Malcolm MD [address] [place] [phone] PCP - General Family Medicine 11/13/16 Tony Jensen, Nolan [address] [place] [address] Pharmacist Internal Medicine 08/14/23 documented as of this encounter
--- OUTSIDE RECORDS SUMMARY | 2025-05-21 08:54 | XMS_ITS | Clinical Summary ---
Author Organization [facility] Address [address] [place] [address] Care Team Providers Care Field Sales Trainer Name Role Phone JanMain sorenson CALLIE Primary Care Provider [phone] Source Comments PLEASE NOTE, if this patient [...] 2015. 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
== END 2025-05-21 08:52 | disposition home or self-care (01) ==
LOC: HO.MAMMO 08:51
PROVIDERS: PCP Internal Medicine; Visit Provider Internal Medicine
DX: Z12.31 Encounter for screening mammogram for malignant neoplasm of breast (principal)
CPT/HCPCS: 77063; 77067

== ENCOUNTER → 2025-05-21 09:15 | Outpatient (BNV) | payer MEDICAID, SELFPAY | PROVIDERS: PCP Internal Medicine; Visit Provider Radiology Body Imaging | DX: Z12.31 Encounter for screening mammogram for malignant neoplasm of breast (principal) | CPT/HCPCS: 77063; 77067 ==

== ENCOUNTER 2025-07-07 13:11 | Outpatient (REF) | payer MEDICAID, SELFPAY ==
--- OUTSIDE RECORDS SUMMARY | 2025-07-07 11:30 | XMS_ITS | Encounter Summary ---
Author Organization [employer] Address [address] [facility] 7t [place] [address] Care Team Providers Care Appliance Repair Technician Name Role Phone Faith Malcolm MD Primary Care Provider + Tony Jensen PharmD Unavailable [phone] Reason for Visit * Reason Comments sickonsite Encounter Details Date Type Department Care Team ([facility] st Contact Info) Description 07/07/2025 11:30 AM EDT Office Visit [facility] MEDICINE [address] [place] [address] Priscilla Tran FNP [address] [place] [address] Papule of skin (Primary Dx); Healthcare maintenance Social History Tobacco Use Types Packs/Day Years [...] Answer Date Recorded Patient Health Questionnaire-9 Score 8 05/18/2025 Patient Health Questionnaire-9 Score 8 05/18/2025 Last PHQ-9: Questionnaire Data Not on file 0 05/18/2025 Housing Stability Answer Date Recorded What is [...] the past 12 months, has t he [employer], gas, oil or water company threatened to shut off services in your home? No 05/28/2024 Depression Answer Date Recorded Patient Health Questionnaire-2 Score 2 05/18/2025 Internet Access Answer Date Recorded Internet Access Q1 Yes 05/31/2025 Internet Access Q2 Not on file 05/31/2025 Comments Unknown Sex and Gender Information Value Date Recorded Sex Assigned at Female 09/03/2022 10:31 AM EDT Legal Sex Female 10:31 AM EDT Gender Identity Female 09/03/2022 10:31 AM EDT Sexual Orientation Straight 09/03/2022 10 :31 AM EDT documented as of this encounter Last Filed Vital Signs Vital Sign Reading Time Taken Comments Blood Pressure 138/80 07/07/2025 12:22 PM EDT Pulse 80 07/07/2025 12:20 PM EDT Temperature 36.9 C (98.5 F) 07/07/2025 12:22 PM EDT Respiratory Rate 14 07/07/2025 12:20 PM EDT Oxygen Saturation 98% 07/07/2025 12:20 PM EDT Inhaled Oxygen Concentration - - Weight 69.5 kg (153 lb 3.2 oz) 07/07/2025 12:20 PM EDT Height - - Body Mass Index 27.57 03/09/2025 1:41 PM EDT documented in this encounter Progress Notes * ITZEL Handy - 07/07/2025 11:30 AM EDT Images from the original note were not included. Subjective: Victoria Torres is a 54 y.o. female w/ PMH hypertension, HLD, T2DM, chronic low back pain, who presents to the office for a sick visit. HPI Ms. Torres reports started with white dots on left labia approx 6 weeks ago. No pain, no tenderness, no itching, no noted changes in size per pt. No F/C/N/V/D. She is sexually active with her mechanic male partner - - and is under the understanding they are monogamous. Nonetheless, in agreement with STI testing. She has a history of Vaginal Hysterectomy, bilateral salpingectomy (ovaries remain) and incontinence procedures 10/2019 for prolapse. Denies any vaginal discharge. No urinary symptoms Problem List[1] Review of Systems Constitutional: Negative for chills and fever. Respiratory: Negative for cough and wheezing. Cardiovascular: Negative for chest pain and palpitations. Genitourinary: Negative for dysuria, vaginal discharge and vaginal pain. Skin: Positive for rash. Visit Vitals BP 138/80 (BP Location: Left arm, Patient Position: Sitting, BP Cuff Size: Adult) Pulse 80 Temp 98.5 ??F (36.9 ??C) (Oral) Resp 14 Wt 153 lb 3.2 oz (69.5 kg) SpO2 98% BMI 27.57 kg/m?? OB Status Unknown Smoking Status Never BSA 1.75 m?? Physical Exam Rn Trauma present: Declines bar supervisor. Constitutional: Appearance: Normal appearance. HENT: Head: Atraumatic. Cardiovascular: Rate and Rhythm: Normal rate. Pulmonary: Effort: Pulmonary effort is normal. Genitourinary: Comments: 1-3 mm white, papule left labia majora Second 1mm white, papule left labia majora. Non-tender. Not erythematous. Neurological: Mental Status: She is alert and oriented to person, place, and time. Psychiatric: Mood and Affect: Mood normal. Behavior: Behavior normal. Problem List Items Addressed This Visit Visit Diagnoses Papule of skin - Primary - Suspect epidermoid cyst vs camille spots vs other - Low suspicion for STI, but will nonetheless check STI testing - Re-check in 8 weeks, sooner as needed Healthcare maintenance Relevant Orders Chlamydia/N. Gonorrhoeae RNA, TMA, Urogenitial Hepatitis C Viral RNA, Quantitative, Real-Time PCR RPR (Monitor) with Reflex to Titer HIV-1/2 Antigen and Antibodies, Fourth Generation, with Reflexes Follow up: 8 weeks, sooner as needed [1] Patient Active Problem List Diagnosis Chronic low back pain Degeneration of cervical intervertebral disc History of vaginal hysterectomy Kidney stone Neck pain Atelectasis Primary insomnia Pharyngeal hemorrhage Vitamin D deficiency Type 2 diabetes mellitus without complication (CMS/HCC) Right foot pain Primary hypertension Restrictive lung disease Spinal stenosis in cervical region Chronic thoracic back pain Nephrocalcinosis Spasm of cervical paraspinous muscle Glaucoma Adjustment insomnia Mass of left axilla Screening for colorectal cancer Accessory breast tissue of axilla Nasal congestion Pure hypercholesterolemia Adjustment disorder with depressed mood documented in this encounter Plan of Treatment Upcoming Encounters Date Type Department Care Team (Late st Contact Info) Description 09/01/2025 10:15 AM EDT Office Visit [facility] MEDICINE [address] [place] [address] Priscilla Tran FNP [address] [place] [address] Scheduled Orders Name Type Priority Associated Diagnoses Orde r Schedule Chlamydia/N. Gonorrhoeae RNA, TMA, Urogenitial Microbiology Routine Healthcare maintenance Expected: 07/07/2025, Expires: 07/07/2026 Hepatitis C Viral RNA, Quantitative, Real-Time PCR Lab Routine Healthcare maintenance Expected: 07/07/2025 (Approximate), Expires: 07/07/2026 RPR (Monitor) with Reflex to Titer Lab Routine Healthcare maintenance Expected: 07/07/2025 (Approximate), Expires: 07/07/2026 HIV-1/2 Antigen and Antibodies, Fourth Generation, with Reflexes Lab Routine Healthcare maintenance Expected: 07/07/2025 (Approximate), Expires: 07/07/2026 documented as of this encounter Goals Goal Patient Goal Type Associated Problems Recent Progress Patient-Stated? Author Blood Pressure < 140/90 Blood Pressure 138/80( 025 12:22 PM EDT) No Tony Jensen, PharmD documented as of this encounter Visit Diagnoses Diagnosis Papule of skin- Primary Healthcare maintenance documented in this encounter Additional Health Concerns Assessment Noted Time PHQ-9 Depression Total Score: 8 05/18/20 25 9:04 AM EDT documented as of this encounter Care Teams Appliance Repair Technician Relationship Specialty Start Date End Date Faith Malcolm MD [address] [place] [address] PCP - General Family Medicine 11/13/16 Tony Jensen, Nolan [address] [place] [address] Pharmacist Internal Medicine 08/14/23 documented as of this encounter
--- OUTSIDE RECORDS SUMMARY | 2025-07-07 15:30 | XMS_ITS | Encounter Summary ---
Author Organization [employer] Address [address] [facility] [address] [place] [address] Care Team Providers Care Patient Support Associate Name Role Phone Faiht Malcolm MD Primary Care Provider + Tony Jensen PharmD Unavailable [phone] Encounter Details Date Type Department Care Team (Latest Contact Info) Description 11/11/2019 Abstract [facility] CONVERSIONS Dental, Provider, DDS Social History Tobacco [...] Description 09/01/2025 10:15 AM EDT Office Visit [facility] MEDICINE [address] [place] [address] Priscilla Tran FNP [address] [place] [address] documented as of this encounter Visit Diagnoses Not on filedocumented in this encounter Care Teams Patient Support Associate Relationship Specialty Start Date End Date Faith Malcolm MD [address] [place], [place] PCP - General Family Medicine 11/13/16 Tony Jensen, PharmD [address] [place] [address] Pharmacist Internal Medicine 08/14/23 documented as of this encounter
--- OUTSIDE RECORDS SUMMARY | 2025-07-07 15:30 | XMS_ITS | Encounter Summary ---
Author Organization [employer] Address [address] [facility] [address] [place] [address] Care Team Providers Care School Bus Driver/Custodian Name Role Phone Faith Malcolm MD Primary Care Provider + Tony Jensen PharmD Unavailable [phone] Reason for Visit * Reason Onset Date Comments Nurse Triage 07/06/2025 Encounter Details Date Type Department Care Team (Late st Contact Info) Description 07/06/[address] [facility] MEDICINE [address] [place], [place] [phone] Faith Malcolm MD [address] [place], [place] [phone] Nurse Triage Social History Tobacco Use Types Packs/Day Years [...] AM EDT documented as of this encounter Miscellaneous Notes * Telephone Encounter - Vandana Nichols RN - 07/06/2025 11:22 AM EDT .No glass cutter hand needed as this specifications writer speaks [place]. Call returned to Victoria Torres to triage below at [phone]. Reports having some rash on left labia. Pt denies it being an in grown hairs. Pthas applied some OTC vaginal cream. Reports they are white pus filled. Not painful. Pt denies any vaginal discharge. Mild vaginal itching. Pt advised of disposition, agrees to sick onsite tomorrow with team provider. Protocol Used: Vaginal Symptoms (Adult) Protocol-Based Disposition: See in Office or Video Visit Today or Tomorrow Future Appointments Date Time Provider Department Center 07/07/2025 11:30 AM ITZEL Handy [facility] Insurance verified as active per Real Time Eligibility in [facility]. Positive Triage Question: * Rash (e.g., redness, tiny bumps, sore) of genital area and present > 24 hours * All higher-acuity triage questions were negative Care Advice Discussed: * Reassurance and Education - Mild Vaginal Rash * Genital Hygiene * Reasons To Call Back - Rash spreads or becomes worse - Fever occurs - You become worse * Telephone Encounter - Houstonhernán Vipul - 07/06/2025 9:53 AM EDT Symptoms: Vaginal Symptoms - Not Bleeding, Rash or Redness on One Body Area Only Outcome: Schedule an appointment to be seen within 24 hours Reason: Caller denied all higher acuity questions The caller accepted this outcome. Contact pt at [phone] documented in this encounter Plan of Treatment Upcoming Encounters Date Type Department Care Team (Late st Contact Info) Description 09/01/2025 10:15 AM EDT Office Visit [facility] [address] [place] [address] Priscilla Tran FNP [address] [place] [address] documented as of this encounter Goals Goal Patient Goal Type Associated Problems Recent Progress Patient-Stated? Author Blood Pressure < 140/90 Blood Pressure 138/80( 025 12:22 PM EDT) No Tony Jensen, Nolan documented as of this encounter Visit Diagnoses Not on filedocumented in this encounter Additional Health Concerns Assessment Noted Time PHQ-9 Depression Total Score: 8 05/18/20 25 9:04 AM EDT documented as of this encounter Care Teams School Bus Driver/Custodian Relationship Specialty Start Date End Date Faith Malcolm MD [address] [place] [phone] PCP - General Family Medicine 11/13/16 Tony Jensen PharmD [address] [place] [phone] Pharmacist Internal Medicine 08/14/23 documented as of this encounter
--- OUTSIDE RECORDS SUMMARY | 2025-07-07 15:30 | XMS_ITS | Clinical Summary ---
Author Organization [employer] Address [address] [facility] [address] [place] [address] Care Team Providers Care Machine Former Name Role Phone Zulay Malcolm MD Primary Care Provider + Tony Jensen PharmD Unavailable [phone] Allergies Active Allergy Reactions Criticality Noted Date Comments Sesame Seed Extract Allergy Skin Test Swelling High 01/13/2018 Throat swelling Medications acetaminophen (Tylenol) 500 MG tablet take 1 tablet by oral route every6 -8 hours as needed not to exceed 4 tablets per 24hrs 09/27/20 21 Active latanoprost (Xalatan) 0.005 % ophthalmic solution PONGA NATIVIDAD GOTA EN LOS DOS OJOS AL ACOSTARSE 07/25/20 23 Active timolol (Timoptic) 0.5 % ophthalmic solution INSTILL 1 DROP BOTH EYES KEREN JIN ZULAY 12/27/19 24 Active traZODone (Desyrel) 50 MG tabletIndication s:Adjustment insomnia Take 1/2 tab po Q 5pm and 1 tab po QHS 45 tablet 2 03/10/20 24 Active albuterol 108 (90 Base) MCG/ACT inhaler Inhale 2 puffs every 6 (six) hours if needed for wheezing. 18 g 10/12/20 24 025 Active fluticasone (Flonase) 50 MCG/ACT nasal spray Administer 1 spray into each nostril Once per day. 16 g 2 02/05/20 25 Active ibuprofen 600 MG tablet Take 1 tablet (600 mg) by mouth every 8 (eight) hours if needed for mild pain. 90 tablet 02/05/20 25 Active EPINEPHrine (EpiPen 2-Kasi) 0.3 MG/0.3ML injection syringe Inject 0.3 mL (0.3 mg) as directed 1 (one) time for 1 dose. 2 each 2 02/06/20 25 Active Blood Pressure kitIndications:P rimary hypertension Used as directed 1 kit 02/06/20 25 Active atorvastatin (Lipitor) 40 MG tablet Take 1 tablet (40 mg) by mouth at bedtime. 90 tablet 3 05/18/20 25 026 Active glucose blood (FREESTYLE LITE) test stripIndications :Type 2 diabetes mellitus without complication, without long-term current use of insulin ([facility]) USE TO TEST BLOOD SUGAR ONCE A DAY 100 each 3 05/20/20 25 Active TRUEplus Lancets 33G miscIndications: Type 2 diabetes mellitus without complication, without long-term current use of insulin ([facility]) USE TO TEST BLOOD SUGAR ONCE A DAY 100 each 3 05/20/20 25 Active lisinopril 10 MG tabletIndication s:Primary hypertension TAKE 1 TABLET BY MOUTH EVERY DAY 90 tablet 3 06/21/20 25 Active lisinopril 10 MG tabletIndication s:Primary hypertension Take 1 tablet (10 mg) by mouth Once per day. 90 tablet 3 06/10/20 24 025 Discontinued Active Problems Problem Noted Date Diagnosed Date Pure hypercholesterolemia 05/18/2025 Assessment & Plan (05/18/2025 9:21 AM EDT): We discussed re rx options and she agreed to start atorvastatin, FU LFTs Recommended moderate amount of exercise and increase consumption of fruit, vegetables, fish and high fiber foods. Should decrease consumption of highly saturated fats or trans fats. FU in 3mo Adjustment disorder with depressed mood 05/18/20 Assessment & Plan (05/18/2025 9:23 AM EDT): Related to his mother have been in the end of stage condition, will provide a support and reassurance and told her to take trazodone nightly to help with insomnia. She will be traveling within the next month to visit her mother, she will touch base with us on a as needed basis Patient feels safe at home and is able to reach out for safety Nasal congestion 02/04/2025 Assessment & Plan (02/04/2025 [...] will check BP at home Glaucoma 07/05/2023 Assessment & Plan (05/18/2025 9:22 AM EDT): Has follow-up appointment with ophthalmology next week Restrictive lung disease 04/25/2023 Spinal stenosis in cervical region 04/25/2023 Nephrocalcinosis 04/25/2023 Assessment & Plan (05/18/2025 9:22 AM EDT): Has a small kidney stones, no need for interventional treatment at this time, seen by urology and had kidney ultrasound. Follow-up with urology every year Primary hypertension 10/19/2022 Assessment & Plan (02/04/2025 [...] BP at home TIW and refer to CD clinic. FU with me in 3 months. [...] diabetes mellitus without complication Assessment & Plan (05/18/2025 9:22 AM EDT): It is most likely controlled Counseled re more frequent low calorie/carb meals. Check fgstk 1x daily Encouraged physical activity as tolerated. FU in 3 months. [facility] appt [facility]25 Has mammogram coming up next week Assessment & Plan (02/04/2025 11:26 AM EDT): [...] Encounters Date Type Department Care Team Description 07/07/2025 11:30 AM EDT Office Visit [facility] [address] [place] [phone] Priscilla Tran, ITZEL Papule of skin (Primary Dx); Healthcare maintenance 07/07/2025 Travel 07/06/2025 Travel 07/06/[address] [address] Zulay Malcolm MD Nurse Triage 06/19/[address] [address] Zulay Malcolm MD Primary hypertension 05/21/2025 Orders Only [address] [address] Zulay Malcolm MD 05/20/[address] [address] Zulay Malcolm MD Med Refill 05/18/2025 9:00 AM EDT Telemedicine [address] [address] Zulay Malcolm MD Type 2 diabetes mellitus without complication, without long-term current use of insulin ([facility]) (Primary Dx); Nephrocalcinosis; Glaucoma, unspecified glaucoma type, unspecified laterality; Pure hypercholesterolemia; Adjustment disorder with depressed mood 05/17/[address] [address] Zulay Malcolm MD Chart prep from Last 3 Months Immunizations Immunization Administration Dates Next Due HepB-CpG 06/02/2024,04/01/2024 Influenza Injectable Quadriv alant Preservative Free IIV4 MDCK 09/18/2023 Influenza injectable quadrivalent preservative f ree 10/19/2022,10/18/2020 Pfizer Covid-19 Vaccine 12+ london-sucrose (Lyon C ap) 01/23/2022 Pneumococcal Conjugate PCV 20 04/01/2024 Tdap 01/02/2024 Zoster, Recombinant 01/02/2024,09/18/2023 Family History Medical History Relation Name Comments Breast cancer Neg Hx Colon cancer Neg Hx Ovarian cancer Neg Hx Social History Tobacco Use Types Packs/Day Years [...] Frequency of Binge Drinking Not on file 04/0 11/2023 Score 0 02/03/2024 Depression Answer Date [...] 3.2 oz) 07/07/2025 12:20 PM EDT Height 158.8 cm (5' 2.5 ) 03/09/2025 1:41 PM EDT Body Mass Index 27.57 03/09/2025 1:41 PM EDT Plan of Treatment Upcoming Encounters Date Type Department Care Team (Late st Contact Info) Description 09/01/2025 10:15 AM EDT Office Visit [facility] [address] [place] [address] Priscilla Tran, ITZEL [address] [place] [address] Health Maintenance Due Date Last Done Comments CT Colonography 1968 Colonoscopy 1968 Colorectal Cancer Screening 1968 FIT DNA/Cologuard 1968 FIT 1968 FOBT 1968 HIV Screening 1968 Sigmoidoscopy 1968 Eye Exam 1978 Alcohol/Substance Use Screening 1980 Hepatitis C Screening 1986 Pap Smear 04/02/2022 04/02/2019 HPV/Cotest 04/02/2024 04/02/2019 Diabetes: Hemoglobin A1C 04/12/2025 024, 06/10/2024, 01/02/2024, Additional history exists COVID-19 Vaccine ( season) 2025 01/23/2022, 05/24/2021, 05/04/2021 Influenza Vaccine (#1) 2025 , 10/19/2022, 10/18/2020, Additional history exists Diabetes: Foot Exam 10/12/2025 10/12/2024, 10/12/2024, 10/12/2024, Additional history exists SDOH Screening 01/26/2026 01/26/2025 Diabetes: Urine Protein Screening 05/17/2026 05/17/2025, 09/18/2023 Lipid Panel 05/17/2026 05/17/2025, 09/04, 10/18/2020 Depression Screening 05/18/2026 05/18/2025, 07/15/20 25 Mammogram 05/21/2026 05/21/2025, 05/04, 05/08/2023, Additional history exists Disability Screening 07/06/2026 07/06/2025 Tobacco Screening 07/07/2026 07/07/2025 DTaP/Tdap/Td Vaccines (2 - Td or Tdap) 01/01/2034 01/02/2024 RSV Patients and Patients Aged 60 years or older (1 - 1-dose 75+ series) 2043 Zoster Vaccines Completed 01/02/2024, 09/18/2023 Pneumococcal Vaccine: 50+ Years Completed 04/01/2024 Hepatitis B Vaccines Completed 06/02/2024, 04/01/20 24 Cervical Cancer Screening Discontinued HIB Vaccines Aged Out No longer eligi [...] patient's age to complete this topic Meningococcal B Vaccine Aged Out No l onger eligible based on patient's age to complete [...] 12:22 PM EDT) No Tony Jensen, PharmD Procedures Procedure Name Priority Date/Time Associated Diagnosis Comments BI MAMMOGRAM SCREENING TOMOSYNTHESIS BILATERAL Routine 05/21/2025 8:55 AM EDT COMPREHENSIVE METABOLIC PANEL Routine 05/17/2025 2:50 PM EDT Type 2 diabetes mellitus without complication, without long-term current use of insulin (CMS/HCC) LIPID PANEL WITH REFLEX TO DIRECT LDL Routine 05/17/2025 2:50 PM EDT Type 2 diabetes mellitus without complication, without long-term current use of insulin (CMS/HCC) ALBUMIN, RANDOM URINE W/CREATININE Routine 05/17/2025 2:50 PM EDT Type 2 diabetes mellitus without complication, without long-term current use of insulin ([facility]) POCT GLYCATED HEMOGLOBIN, TOTAL Routine 10/12/2024 3:19 PM EST Type 2 diabetes mellitus without complication, without long-term current use of insulin ([facility]) ZZZ HISTORICAL HPV MRNA E6/E7 Routine 04/02/2019 9:59 AM EDT HM PAP/HPV Routine 04/02/2019 from Last 3 Months or Most Recently Relevant to Health Maintenance Results * BI Mammogram Screening Tomosynthesis Bilateral (05/21/2025 8:55 AM EDT) Anatomical Region Laterality Modality Breast Bilateral Mammography 05/21/2025 8:55 AM EDT Narrative 05/31/2025 1:23 PM EDT [facility] [address] [place] [address] Mammography Report Signed Patient: Victoria Torres MR#: [id number] 69 : 1970 Acct:[id number] Age/Sex: 54 / F ADM Date: 05/21/25 Loc: HO.MAMMO Attending Dr: Zulay Malcolm MD Ordering Physician: Zulay Malcolm MD Results: 2Be nign Findings Date of Service: 05/21/25 Follow Up: 1 Year From [facility] Mammogram Procedure(s): MM tomosynthesis screening BI Accession Number(s): [id number] cc: Zulay Malcolm MD EXAMINATION: MM SCREENING DIGITAL BREAST TOMOSYNTHESIS, BILATERAL CLINICAL INFORMATION: Screening. Asymptomatic. COMPARISON: Comparison made to multiple prior, most recent May 13, 2024, and most remote July 21, 2014. TECHNIQUE: Digital breast tomosynthesis is performed in both the craniocaudal and mediolateral oblique views along with computer-aided detection (CAD). Synthesized 2D images are generated from the tomosynthesis. FINDINGS: BREAST COMPOSITION: The breasts are heterogeneously dense, which may obscure small masses (ACR BI-RADS breast composition Category c). RIGHT BREAST: No significant masses, suspicious calcifications or other abnormalities are seen. LEFT BREAST: Tissue marker from previous needle core biopsy. No significant masses, suspicious calcifications or other abnormalities are seen. MM/MM tomosynthesis screening BI IMPRESSION: BILATERAL BREASTS: Benign, no mammographic evidence of malignancy. Normal interval follow-up is recommended in 12 months. ASSESSMENT: BI-RADS 2 - Benign Findings RECOMMENDATION: Routine annual mammography screening. FOLLOW-UP: 1 year F/U This examination should not preclude the clinical evaluation of a suspicious palpable abnormality. This patient's information was entered into a reminder system with a target due date for their next mammogram. Electronically signed by: Arvind Brady MD 05/31/2025 01:20 PM EDT RP Workstation: [employer] Dictated By: Arvind Brady MD Signed By: <Electronically signed by Arvind Brady MD in OV> 05/31/25 1320 DD/ 0855 TD/TT: 05/21/25 0915 Wood Heel Attacher: Procedure Note Donotuseinterpreter, Image - 05/31/2025 [facility]'s [address] [place] [address] Mammography Report Signed Patient: Victoria Torres [facility]#: [id number] 69 : 1970Acct:[id number] Age/Sex: 54 / FADM Date: 05/21/25 Loc: HO.MAMMO Attending Dr: Zulay Malcolm MD Ordering Physician: Zulay Malcolm MDResults: 2Be nign Findings Date of Service: 05/21/25Follow Up: 1 Year From Orig inal Mammogram Procedure(s): MM tomosynthesis screening BI Accession Number(s): [id number] cc: Zulay Malcolm MD EXAMINATION: MM SCREENING DIGITAL BREAST TOMOSYNTHESIS, BILATERAL CLINICAL INFORMATION: Screening. Asymptomatic. COMPARISON: Comparison made to multiple prior, most recent May 13, 2024, and most remote July 21, 2014. TECHNIQUE: Digital breast tomosynthesis is performed in both the craniocaudal and mediolateral oblique views along with computer-aided detection (CAD). Synthesized 2D images are generated from the tomosynthesis. FINDINGS: BREAST COMPOSITION: The breasts are heterogeneously dense, which may obscure small masses (ACR BI-RADS breast composition Category c). RIGHT BREAST: No significant masses, suspicious calcifications or other abnormalities are seen. LEFT BREAST: Tissue marker from previous needle core biopsy. No significant masses, suspicious calcifications or other abnormalities are seen. MM/MM tomosynthesis screening BI IMPRESSION: BILATERAL BREASTS: Benign, no mammographic evidence of malignancy. Normal interval follow-up is recommended in 12 months. ASSESSMENT: BI-RADS 2 - Benign Findings RECOMMENDATION: Routine annual mammography screening. FOLLOW-UP: 1 year F/U This examination should not preclude the clinical evaluation of a suspicious palpable abnormality. This patient's information was entered into a reminder system with a target due date for their next mammogram. Electronically signed by: Arvind Brady MD 05/31/2025 01:20 PM EDT Dictated By: Arvind Brady MD Signed By: <Electronically signed by Arvind Brady MD in OV> 05/31/25 1320 DD/ 0855 TD/TT: 05/21/25 0915 Wood Heel Attacher: us Zulay Malcolm MD IMG BI PROCEDURES Final Result * (ABNORMAL) Lipid Panel with Reflex to Direct LDL (05/17/2025 2:50 PM EDT) Triglycerides 122 <150 mg/dL [facility] Comment:Desirable Triglyceri de: less than 150 mg/dLBorderline High Triglyceride 150-199 mg/dLHigh Triglyceride: 200-499 mg/dLVery High Triglyceride: greater than or equal to 5OO mg/dL Cholesterol 193 <200 mg/dL [facility] Comment:Desirable Cholestero l: less than 200 mg/dLBorderline High Cholesterol: 200-239 mg/dLHigh Cholesterol: greater than 239 mg/dL LDL Cholesterol Calculated 110(H) <100 mg/dL [facility] Comment:Desirable LDL: less than 100 mg/dLNear Optimal/Above Optimal LDL: 110- 129 mg/dLBorderline High LDL: 130-159 mg/dLHigh LDL: 160-189 mg/dLVery High LDL: greater than or equal to 190 mg/dL HDL Cholesterol 59 >40 mg/dL [facility] Comment:Desirable HDL: great er than 40 mg/dL Note: This HDL assay may give artificially low results in patients with liver disease. Blood 05/17/2025 2:50 PM EDT 05/17/2025 4:41 PM EDT us Zulay Malcolm MD LAB BLOOD ORDERABLES Fin al Result Performing Organization Address [facility] Co de Phone Number [facility] [address] [place] [address] [phone] * Albumin, Random Urine W/Creatinine (05/17/2025 2:50 PM EDT) Creatinine, Urine 39.12 mg/dL [facility] Microalbumin Urine <5.0 mg/L [facility] Microalbum Creatinine Ratio Ur TNP <30 ug/mg cr [facility] Comment:Unable to calculate albumin/creatinine ratio due to lowmicroalbumin or creatinine result. Urine (Urine, Random) 05/17/2025 2:50 PM EDT 05/17/2025 4:41 PM EDT us Zulay Malcolm MD LAB URINE ORDERABLES Fin al Result Performing Organization Address [facility]/ZIP Co de Phone Number [facility] [address] [place] [address] [phone] * (ABNORMAL) Comprehensive Metabolic Panel (05/17/2025 2:50 PM EDT) Sodium 141 135 - 145 mmol/L [facility] Potassium 4.0 3.3 - 5.1 mmol/L [facility] Chloride 103 96 - 108 mmol/L [facility] Carbon Dioxide 30(H) 22 - 29 mmol/L [facility] Anion Gap 12 12 - 20 [facility] Urea Nitrogen (BUN) 12 9 - 16 mg/dL [facility] Creatinine, Serum 0.61 0.5 - 1.4 mg/dL [facility] Estimated Glomerular Filt Rate >60 [facility] Comment:Chronic Kidney Disea se: Estimated GFR < 60 mL/min/1.74t3Vkoqkk Kidney Disease: Estimated GFR < 15 mL/min/1.73m2 Glucose 98 60 - 115 mg/dL [facility] Calcium 9.6 8.4 - 10.2 mg/dL [facility] Bilirubin, Total 0.4 0.0 - 1.0 mg/dL [facility] Aspartate Amino Transferase 27 5 - 31 U/L [facility] Alanine Aminotransferase 25 0 - 31 U/L [facility] Total Protein 8.0 6.5 - 8.0 g/dL [facility] Albumin Level 4.7 3.5 - 5.0 g/dL [facility] Alkaline Phosphatase 84 39 - 117 U/L [facility] Blood Venous blood specimen / Unknown 05/17/2025 2:50 PM EDT 05/17/2025 4:41 PM EDT Zulay Malcolm MD LAB BLOOD ORDERABLES Fin al Result [facility] [address] [place] [phone] * (ABNORMAL) POCT HGB A1C (10/12/2024 3:19 PM EST) Hemoglobin A1C 6.3(A) 4.0 - 6.0 % QC Media Lot # [id number] Lot# Expiration Date [id number] Blood 10/12/2024 3:19 PM EST Zulay Malcolm MD POINT OF CARE TEST ENTER /EDIT ORDERABLES Final Result * HPV mRNA E6/E7 (04/02/2019 9:59 AM EDT) HPV mRNA E6/E7 Not Detected NOT DETECTED [facility] Comment: This test was performed using the APTIMA(R) HPV Assay ([employer] This assay detects E6/E7 viral messenger RNA (mRNA) from 14 high-risk HPV types (16,18,31,33,35,39,45,51, 52,56,58,59,66,68). For additional information please refer to: http://education.Thename.is/faq/PDA346r0 (This link is being provided for informational/ educational purposes only.) The analytical performance characteristics of this assay have been determined by [employer] ([employer] [place], [place]. The modifications have not been cleared or approved by the FDA. This assay has been validated pursuant to the CLIA regulations and is used for clinical purposes. Test Performed by [facility], [facility], [address] [place] [address] Moncho Tom M.D., Ph.D., Director of Laboratories , CLIA [id number] Please note: Effective 07/16/2016, HPV testing will be performed using [employer]'s APTIMA test which targets mRNA. Detecting mRNA instead of DNA, as in older methods, offers significant improvements in specificity. 04/02/2019 9:59 AM EDT Zulay Malcolm MD HISTORICAL/NON ORDERABLE LABS Final Result [facility] [address] * Pap Smear (04/02/2019) Pathologist [facility] Pap smear performed Historical Provider HEALTH MAINTENANCE Final Result from Last 3 Months or Most Recently Relevant to Health Maintenance Insurance [facility] C3 HSN FULL Care Teams Machine Former Relationship Specialty Start Date End Date Zulay Malcolm MD [address] [place] [address] PCP - General Family Medicine 11/13/16 Tony Jensen, DamionD [address] [place] [address] Pharmacist Internal Medicine 08/14/23
--- OUTSIDE RECORDS SUMMARY | 2025-07-07 15:30 | XMS_ITS | Clinical Summary ---
Author Organization [facility] Address [address] [place] [address] Care Team Providers Care Hot Saw Helper Name Role Phone JanMain sorenson CALLIE Primary Care Provider [phone] Source Comments PLEASE NOTE, if this patient [...] 2015. Hx of mammogram 03/04/2016 Overview (03/04/2016): [facility] 2014 negative Visit for gynecologic examination 01/16/2016 Overview (01/16/2016): [facility]IDE [facility]ANGER- 2 small fibroids per patient Family History [...] Plan of Treatment Not on file Insurance [employer] Care Teams Hot Saw Helper Relationship Specialty Start Date End Date Main White NP [address] [place] [address] [facility] - General 09/11/18
--- OUTSIDE RECORDS SUMMARY | 2025-07-07 15:30 | XMS_ITS | Encounter Summary ---
Author Organization [employer] Address [address] [facility] [address] [place] [address] Care Team Providers Care Vacuum Closing Machine Operator Name Role Phone Faith Malcolm MD Primary Care Provider + Tony Jensen PharmD Unavailable [phone] Encounter Details Date Type Department Care Team (Latest Contact Info) Description 07/06/2025 Travel Social History Tobacco Use Types Packs/Day Years [...] Description 09/01/2025 10:15 AM EDT Office Visit [facility] MEDICINE [address] [place] [address] Priscilla Tran FNP [address] [place] [address] documented as of this encounter Goals Goal [...] documented as of this encounter Care Teams Vacuum Closing Machine Operator Relationship Specialty Start Date End Date Faith Malcolm MD [address] [place] [id number] PCP - General Family Medicine 11/13/16 Tony Jensen PharmD [address] [place] [id number] Pharmacist Internal Medicine 08/14/23 documented as of this encounter
--- OUTSIDE RECORDS SUMMARY | 2025-07-07 15:30 | XMS_ITS | Encounter Summary ---
Author Organization [employer] Address [address] [facility] [address] [place] [address] Care Team Providers Care Steward/Stewardess Lounge Name Role Phone Faith Malcolm MD Primary Care Provider + Tony Jensen PharmD Unavailable [phone] Reason for Visit * Reason Comments Med Refill Encounter Details Date Type Department Care Team ([facility] st Contact Info) Description 11/04/2024 Refill [facility] MEDICINE [address] [place], [place] [phone] Faith Malcolm MD [address] [place], [place] [phone] Social History Tobacco Use Types Packs/Day Years [...] 10:15 AM EDT Office Visit [facility] MEDICINE [address] [place] [address] Priscilla Tran FNP [address] [place] [address] documented as of this encounter Goals Goal [...] documented as of this encounter Care Teams Steward/Stewardess Lounge Relationship Specialty Start Date End Date Faith Malcolm MD [address] [place] [address] PCP - General Family Medicine 11/13/16 Tony Jensen, PharmD [address] [place] [address] Pharmacist Internal Medicine 08/14/23 documented as of this encounter
--- OUTSIDE RECORDS SUMMARY | 2025-07-07 15:30 | XMS_ITS | Encounter Summary ---
Author Organization [employer] Address [address] [facility] [address] [place] [address] Care Team Providers Care Information Architect Name Role Phone Faith Malcolm MD Primary Care Provider + Tony Jensen PharmD Unavailable [phone] Reason for Visit * Reason Comments Med Refill Encounter Details Date Type Department Care Team ([facility] st Contact Info) Description 10/08/2023 Refill [facility] MEDICINE [address] [place], [place] [phone] Faiht Malcolm MD [address] [place] [address] Adjustment insomnia Social History Tobacco Use Types [...] Description 09/01/2025 10:15 AM EDT Office Visit [facility] MEDICINE [address] [place] [address] Priscilla Tran FNP [address] [place] [address] documented as of this encounter Goals Goal Patient Goal Type Associated Problems Recent Progress Patient-Stated? Author Blood Pressure < 140/90 Blood Pressure 138/80( 025 12:22 PM EDT) No Tony Jensen, PharmD documented as of this encounter Visit Diagnoses Diagnosis Adjustment insomnia Insomnia, unspecified documented in this encounter Care Teams Information Architect Relationship Specialty Start Date End Date Faith Malcolm MD [address] [place] [address] PCP - General Family Medicine 11/13/16 Tony Jensen, PharmD [address] [place] [id number] Pharmacist Internal Medicine 08/14/23 documented as of this encounter
--- OUTSIDE RECORDS SUMMARY | 2025-07-07 15:30 | XMS_ITS | Encounter Summary ---
Author Organization [employer] Address [address] [facility] 7[address] [place] [address] Care Team Providers Care Gas Leak Inspector Name Role Phone Faith Malcolm MD Primary Care Provider + Tony Jensen PharmD Unavailable [phone] Encounter Details Date Type Department Care Team (Latest Contact Info) Description 07/07/2025 Travel Social History Tobacco Use Types Packs/Day [...] 10:15 AM EDT Office Visit [facility] MEDICINE [address] [place] [address] Priscilla Tran FNP [address] [place] [address] documented as of this encounter Goals Goal [...] documented as of this encounter Care Teams Gas Leak Inspector Relationship Specialty Start Date End Date Faith Malcolm MD [address] [place] [address] PCP - General Family Medicine 11/13/16 Tony Jensen PharmD [address] [place] [address] Pharmacist Internal Medicine 08/14/23 documented as of this encounter
[2025-07-08 08:04] LABS: HIV Num 1 0.07 S/CO (0.00-0.99)
[2025-07-09 13:54] LABS: HCV Log PCR <1.18 NOT DETECTED Log IU/mL (NOT DETECTED); HepC Viral Load <15 NOT DETECTED IU/mL (NOT DETECTED)
== END 2025-07-07 13:12 | disposition home or self-care (01) ==
LOC: HO.HHCL 13:11
PROVIDERS: PCP Internal Medicine; Visit Provider Registered Nurse
DX: Z00.00 Encounter for general adult medical examination without abnormal findings (principal); Z11.3 Encounter for screening for infections with a predominantly sexual mode of transmission; Z11.4 Encounter for screening for human immunodeficiency virus [HIV]; Z11.59 Encounter for screening for other viral diseases
CPT/HCPCS: 36415; 86592; 87389; 87522

== ENCOUNTER 2025-09-01 18:14 | Outpatient (REF) | payer MEDICAID, SELFPAY ==
--- OUTSIDE RECORDS SUMMARY | 2025-09-01 10:15 | XMS_ITS | Encounter Summary ---
Author Organization [employer] Address [address] [facility] [address] [place] [address] Care Team Providers Care Framing Carpenter Name Role Phone Faith Malcolm MD Primary Care Provider + Tony Jensen PharmD Unavailable [phone] Reason for Referral * Consultation (Routine) - Pending Review Specialty Diagnoses / Procedures Referred By Summer lobato Referred To Contact Obstetrics and Gynecology Diagnoses Vulvar cyst Papule of skin Priscilla Tran FNP [address] [place] [address] Phone: tel: fax: Referral ID Status Reason Start Date Expiration Date Visits Requested Visits Authorized [id number] Pending Review Specialty Services Required 09/01/2026 1 1 Encounter Details Date Type Department Care Team ([facility] st Contact Info) Description 09/01/2025 10:15 AM EDT Office Visit [facility] MEDICINE [address] [place] [address] Priscilla Tran FNP [address] [place] [address] Vulvar cyst (Primary Dx); Vaginal symptom; Papule of skin; Abdominal discomfort Social History Tobacco Use Types Packs/Day Years [...] Sign Reading Time Taken Comments Blood Pressure 120/78 09/01/2025 10:41 AM EDT Pulse 68 09/01/2025 10:41 AM EDT Temperature 36.9 C (98.4 F) 09/01/2025 10:41 AM EDT Respiratory Rate 15 09/01/2025 10:41 AM EDT Oxygen Saturation - - Inhaled Oxygen Concentration - - Weight 71 kg (156 lb 8 oz) 09/01/2025 10:41 AM E DT Height 158.8 cm (5' 2.5 ) 09/01/2025 10:41 AM ED T Body Mass Index 28.17 09/01/2025 10:41 AM EDT documented in this encounter Progress Notes * Priscillaarian Tran, APPRENTICE PATTERN MAKER - 09/01/2025 10:15 AM EDT Images from the original note were not included. Subjective: Victoria Torres is a 54 y.o. female w/ PMH hypertension, HLD, T2DM, chronic low back pain, who presents to the office for a sick visit. HPI Ms. Torres reports started with white dots on left labia approx 4 months ago in April 2025. No pain,no tenderness, no itching, no noted changes in size per pt. No F/C/N/V/D. She is sexually active with her long term care phlebotomist male partner - - and is under the understanding they are monogamous. STI testing in Jul 2025 negative for Hep C, RPR, and HIV. She has a history of Vaginal Hysterectomy, bilateral salpingectomy (ovaries remain) and incontinence procedures 10/2019 for prolapse. Denies any vaginal discharge, but does note intermittent vaginal itching. No urinary symptoms. Occasional mild LLQ pain. Problem List[1] Review of Systems Constitutional: Negative for chills and fever. Respiratory: Negative for cough and wheezing. Cardiovascular: Negative for chest pain and palpitations. Genitourinary: Negative for dysuria, vaginal discharge and vaginal pain. Skin: Positive for rash (skin bump). Visit Vitals BP 120/78 (BP Location: Left arm, Patient Position: Sitting, BP Cuff Size: Adult) Pulse 68 Temp 98.4 ??F (36.9 ??C) (Oral) Resp 15 Ht 5' 2.5 (1.588 m) Wt 156 lb 8 oz (71 kg) BMI 28.17 kg/m?? OB Status Unknown Smoking Status Never BSA 1.77 m?? Physical Exam Chairman present: Korina Herbert CNM. Constitutional: Appearance: Normal appearance. HENT: Head: Atraumatic. Cardiovascular: Rate and Rhythm: Normal rate. Pulmonary: Effort: Pulmonary effort is normal. Genitourinary: Comments: 1-3 mm white, papule left labia majora Second 1mm white, papule left labia majora. Non-tender. Not erythematous. 1 mm round, skin colored papule on left labia minor, smooth border. Neurological: Mental Status: She is alert and oriented to person, place, and time. Psychiatric: Mood and Affect: Mood normal. Behavior: Behavior normal. Problem List Items Addressed This Visit Visit Diagnoses Vulvar cyst - Primary - Clinical presentation c/w epidermoid cyst. She is interested in consideration of removal. Referral to external DIMETHYLANILINE SULFATOR OPERATOR placed. Relevant Orders Referral to Obstetrics / Gynecology Vaginal symptom - Intermittent vaginal itching not associated with discharge - Plan: check BV/yeast/trich/CT/NG, call with results Relevant Orders Chlamydia/N. Gonorrhoeae RNA, TMA, Urogenitial Bacterial Vaginosis Papule of skin - Labia minora 1mm skin colored papule, circular with smooth borders. Non- tedner, Non-pruritic. Included in DIMETHYLANILINE SULFATOR OPERATOR referral. Abdominal discomfort - Intermittent left lower quadrant abdominal discomfort. No acute abdomen on exam today. She reports using ibuprofen with partial relief. Trial of meloxicam. Reviewed med use and safety. Aware not tocombine with other NSAIDS. F/up precautions. Follow up: routine care with PCP, sooner as needed. [1] Patient Active Problem List Diagnosis Chronic low back pain Degeneration of cervical intervertebral disc History of vaginal hysterectomy Kidney stone Neck pain Atelectasis Primary insomnia Pharyngeal hemorrhage Vitamin D deficiency Type 2 diabetes mellitus without complication Right foot pain Primary hypertension Restrictive lung disease Spinal stenosis in cervical region Chronic thoracic back pain Nephrocalcinosis Spasm of cervical paraspinous muscle Glaucoma Adjustment insomnia Mass of left axilla Screening for colorectal cancer Accessory breast tissue of axilla Nasal congestion Pure hypercholesterolemia Adjustment disorder with depressed mood documented in this encounter Plan of Treatment Scheduled Orders Name Type Priority Associated Diagnoses Orde r Schedule Chlamydia/N. Gonorrhoeae RNA, TMA, Urogenitial Microbiology Routine Vaginal symptom Ordered: 09/01/2025 Bacterial Vaginosis Microbiology Routine Vaginal symptom Ordered: 09/01/2025 Scheduled Referrals Name Type Priority Associated Diagnoses Order Schedule Referral to Obstetrics / Gynecology Outpatient Referral Routine Vulvar cyst Papule of skin Expected: 09/01/2025 (Approximate), Expires: 09/01/2026 documented as of this encounter Goals Goal Patient Goal Type Associated Problems Recent Progress Patient-Stated? Author Blood Pressure < 140/90 Blood Pressure 120/78( 025 10:41 AM EDT) No Toyn Jensen, PharmAllie documented as of this encounter Visit Diagnoses Diagnosis Vulvar cyst- Primary Other specified noninflammatory disorder of vulva and perineum Vaginal symptom Papule of skin Abdominal discomfort Abdominal pain, unspecified site documented in this encounter Additional Health Concerns Assessment Noted Time PHQ-9 Depression Total Score: 8 05/18/20 25 9:04 AM EDT documented as of this encounter Care Teams Framing Carpenter Relationship Specialty Start Date End Date Faith Malcolm MD [address] [place] [address] PCP - General Family Medicine 11/13/16 Tony Jensen, PharmD [address] [place] [address] Pharmacist Internal Medicine 08/14/23 documented as of this encounter
--- OUTSIDE RECORDS SUMMARY | 2025-09-01 20:21 | XMS_ITS | Encounter Summary ---
Author Organization [employer] Address [address] [facility] [address] [place] [address] Care Team Providers Care Global Supply Chain Director Name Role Phone Faith Malcolm MD Primary Care Provider + Tony eJnsen PharmD Unavailable [phone] Reason for Visit * Reason Comments Med Refill Encounter Details Date Type Department Care Team ([facility] st Contact Info) Description 10/08/2023 Refill [facility] MEDICINE [address] [place], [place] [phone] Faith Malcolm MD [address] [place] [address] Adjustment insomnia Social History Tobacco Use Types [...] Pressure 120/78( 025 10:41 AM EDT) No Tony Jensen, Nolan documented as of this encounter Visit Diagnoses Diagnosis Adjustment insomnia Insomnia, unspecified documented in this encounter Care Teams Global Supply Chain Director Relationship Specialty Start Date End Date Faith Malcolm MD [address] [place] [address] PCP - General Family Medicine 11/13/16 Tony Jensen PharmD [address] [place] [address] Pharmacist Internal Medicine 08/14/23 documented as of this encounter
--- OUTSIDE RECORDS SUMMARY | 2025-09-01 20:21 | XMS_ITS | Clinical Summary ---
Author Organization [employer] Address [address] [facility] [address] [place] [address] Care Team Providers Care [employer] Teacher Name Role Phone Zulay Malcolm MD Primary Care Provider + Tony Jensen PharmD Unavailable [phone] Allergies Active Allergy Reactions Criticality Noted Date Comments Sesame Seed Extract Allergy Skin Test Swelling High 01/13/2018 Throat swelling Medications acetaminophen (Tylenol) 500 MG tablet take 1 tablet by oral route every6 -8 hours as needed not to exceed 4 tablets per 24hrs 1 Active latanoprost (Xalatan) 0.005 % ophthalmic solution PONGA NATIVIDAD GOTA EN LOS DOS OJOS AL ACOSTARSE 3 Active timolol (Timoptic) 0.5 % ophthalmic solution INSTILL 1 DROP BOTH EYES CADCely JIN ZULAY 4 Active traZODone (Desyrel) 50 MG tabletIndications :Adjustment insomnia Take 1/2 tab po Q 5pm and 1 tab po QHS 45 tablet 2 4 Active albuterol 108 (90 Base) MCG/ACT inhaler Inhale 2 puffs every 6 (six) hours if needed for wheezing. 18 g 4 10/12/20 25 Active fluticasone (Flonase) 50 MCG/ACT nasal spray Administer 1 spray into each nostril Once per day. 16 g 2 5 Active ibuprofen 600 MG tablet Take 1 tablet (600 mg) by mouth every 8 (eight) hours if needed for mild pain. 90 tablet 5 Active EPINEPHrine (EpiPen 2-Kasi) 0.3 MG/0.3ML injection syringe Inject 0.3 mL (0.3 mg) as directed 1 (one) time for 1 dose. 2 each 2 5 Active Blood Pressure kitIndications:Pr imary hypertension Used as directed 1 kit 5 Active atorvastatin (Lipitor) 40 MG tablet Take 1 tablet (40 mg) by mouth at bedtime. 90 tablet 3 5 05/18/20 26 Active glucose blood (FREESTYLE LITE) test stripIndications: Type 2 diabetes mellitus without complication, without long-term current use of insulin (HCC) USE TO TEST BLOOD SUGAR ONCE A DAY 100 each 3 5 Active TRUEplus Lancets 33G miscIndications:T ype 2 diabetes mellitus without complication, without long-term current use of insulin (HCC) USE TO TEST BLOOD SUGAR ONCE A DAY 100 each 3 5 Active lisinopril 10 MG tabletIndications :Primary hypertension TAKE 1 TABLET BY MOUTH EVERY DAY 90 tablet 3 5 Active meloxicam (Mobic) 15 MG tablet Take 1 tablet (15 mg) by mouth Once per day. 30 tablet 5 09/01/20 26 Active Active Problems Problem Noted Date Diagnosed [...] 3mo Adjustment disorder with depressed mood 05/18/20 25 Assessment & Plan (05/18/2025 9:23 AM EDT): [...] BP at home TIW and refer to [facility] clinic. FU with me in 3 [...] Encounters Date Type Department Care Team Description 09/01/2025 10:15 AM EDT Office Visit [facility] [address] [place] [phone] Priscilla Tran FNP Vulvar cyst (Primary Dx); Vaginal symptom; Papule of skin; Abdominal discomfort 09/01/2025 Travel 08/25/2025 Travel 07/23/2025 Results Follow-Up [facility] [address] [place] [address] Priscilla Tran, MATERIALS MANAGEMENT SUPERVISOR Hepatitis C Viral RNA, Quantitative, Real-Time PCR, RPR (Monitor) with Reflex to Titer, HIV-1/2 Antigen and Antibodies, Fourth Generation, with Reflexes 07/07/2025 11:30 AM EDT Office Visit [facility] [address] [place], [place] [phone] Priscilla Tran FNP Papule of skin (Primary Dx); Healthcare maintenance 07/07/2025 Travel 07/06/2025 Travel 07/06/2025 Telephone [facility] [address] [place], [place] [phone] Zulay Malcolm MD Nurse Triage 06/19/2025 Refill [facility] [address] [place], [place] [phone] Zulay Malcolm MD Primary hypertension from Last 3 Months Immunizations Immunization Administration Dates Next Due HepB-CpG 06/02/2024,04/01/2024 Influenza Injectable Quadriv alant Preservative Free IIV4 MDCK 09/18/2023 Influenza injectable quadrivalent preservative f ree 10/19/2022,10/18/2020 Pfizer Covid-19 Vaccine 12+ lnodon-sucrose (Lyon C ap) 01/23/2022 Pneumococcal Conjugate PCV [...] 15 09/01/2025 10:41 AM EDT Oxygen Saturation 98% 07/07/2025 12:20 PM EDT Inhaled Oxygen Concentration - - Weight 71 kg (156 lb 8 oz) 09/01/2025 10:41 AM E DT Height 158.8 cm (5' 2.5 ) 09/01/2025 10:41 AM ED T Body Mass Index 28.17 09/01/2025 10:41 AM EDT Plan of Treatment Health Maintenance Due Date Last Done Comments CT Colonography 1968 Colonoscopy 1968 Colorectal Cancer Screening 1968 FIT DNA/Cologuard 1968 FIT 1968 FOBT 1968 Sigmoidoscopy 1968 Eye Exam 1978 Alcohol/Substance Use Screening 1980 Pap Smear 04/02/2022 04/02/2019 HPV/Cotest 04/02/2024 04/02/2019 [...] 05/17/2025, 09/04, 10/18/2020 Depression Screening 05/18/2026 05/18/2025, 05/18/20 25 Mammogram 05/21/2026 05/21/2025, 05/04, 05/08/2023, Additional history exists Disability Screening 07/06/2026 07/06/2025 Tobacco Screening 07/07/2026 07/07/2025 DTaP/Tdap/Td Vaccines (2 - Td or Tdap) 01/01/2034 01/02/2024 RSV Patients and Patients Aged 60 years or older (1 - 1-dose 75+ series) 2043 Zoster Vaccines Completed 01/02/2024, 09/18/2023 Pneumococcal Vaccine: 50+ Years Completed 04/01/2024 Hepatitis B Vaccines Completed 06/02/2024, 04/01/20 24 HIV Screening Completed 07/07/2025 Hepatitis C Screening Completed 07/07/2025 Cervical Cancer Screening Discontinued HIB Vaccines Aged [...] 10:41 AM EDT) No Tony Jensen, Nolan Procedures Procedure Name Priority Date/Time Associated Diagnosis Comments HIV 1/2 ANTIGEN/ANTIBODY, FOURTH GENERATION W/RFL Routine 07/07/2025 1:19 PM EDT Healthcare maintenance RPR (MONITOR) W/REFL TITER Routine 07/07/2025 1:19 PM EDT Healthcare maintenance HEPATITIS C VIRAL RNA, QUANTITATIVE, REAL-TIME PCR Routine 07/07/2025 1:19 PM EDT Healthcare maintenance BI MAMMOGRAM SCREENING TOMOSYNTHESIS BILATERAL Routine 05/21/2025 8:55 AM EDT ALBUMIN, RANDOM URINE W/CREATININE Routine 05/17/2025 2:50 PM EDT Type 2 diabetes mellitus without complication, without long-term current use of insulin (CMS/HCC) LIPID PANEL WITH REFLEX TO DIRECT LDL Routine 05/17/2025 2:50 PM EDT Type 2 diabetes mellitus without complication, without long-term current use of insulin (CMS/HCC) POCT GLYCATED HEMOGLOBIN, TOTAL Routine 10/12/2024 3:19 PM EST Type 2 diabetes mellitus without complication, without long-term current use of insulin (CMS/HCC) ZZZ HISTORICAL HPV MRNA E6/E7 Routine 04/02/2019 9:59 AM EDT HM PAP/HPV Routine 04/02/2019 from Last 3 Months or Most Recently Relevant to Health Maintenance Results * Hepatitis C Viral RNA, Quantitative, Real-Time PCR (07/07/2025 1:19 PM EDT) Hepatitis C Viral Load <15 NOT DETECTED NOT DETECTED IU/mL [facility] HCV Log PCR <1.18 NOT DETECTED NOT DETECTED Log IU/mL [facility] Comment:For additional infor mation, please refer tohttp://education.SocialCom/faq/EAZ65w0(This link is being provided for informational/educational purposes only.)THIS TEST WAS PERFORMED AT:[facility] [place] [phone] CAMARILLO MD Blood 07/07/2025 1:19 PM EDT 07/07/2025 4:17 PM EDT Priscilla Tran [facility] BLOOD ORDERABLES Final Res ult [facility] [address] [place] [phone] * RPR (Monitor) with Reflex to??Titer (07/07/2025 1:19 PM EDT) RPR (Monitor) w/Refl Titer NON-REACTI VE NON-REACT RACHEL [facility] Comment:THIS TEST WAS PERFOR MED AT:[facility] [place] [phone] CAMARILLO MD Rapid Plasma Reagin Ab Titer TNP [facility] Blood Venous blood specimen / Unknown 07/07/2025 1:19 PM EDT 07/07/2025 4:17 PM EDT Priscilla Tran [facility] BLOOD ORDERABLES Final Res ult Performing Organization Address [facility] Co de Phone Number [facility] [address] [place] [phone] * HIV-1/2 Antigen and Antibodies, Fourth Generation, with Reflexes (07/07/2025 1:19 PM EDT) HIV AB/AG Nonreactive Nonreactive [facility] Comment:HIV-1 p24 Ag and/or HIV-1/HIV-2 Ab not detected.A test result that is nonreactive does not exclude thepossibility of exposure to or infection with HIV-1 and/orHIV-2. Nonreactive results in this assay for individualswith prior exposure to HIV-1 and/or HIV-2 may be due toantigen and antibody levels that are below the limit ofdetection of this assay.The [employer] Expat HIV Ag/Ab Combo assay result andsupplemental assay results should be interpreted inconjunction with the patient's clinical presentation,history and other laboratory results. If the results areinconsistent with clinical evidence, additional testing issuggested to confirm the result. Blood Venous blood specimen / Unknown 07/07/2025 1:19 PM EDT 07/07/2025 4:17 PM EDT Priscilla Tran [facility] BLOOD ORDERABLES Final Res ult Performing Organization Address City/[facility]/ZIP Co de Phone Number [facility] [address] [place] [address] [phone] * BI Mammogram Screening Tomosynthesis Bilateral (05/21/2025 8:55 AM EDT) Anatomical Region Laterality Modality Breast Bilateral Mammography 05/21/2025 8:55 AM EDT Narrative 05/31/2025 1:23 PM EDT [facility] [address] [place] [address] Mammography Report Signed Patient: Victoria Torres MR#: [id number] 69 : 1970 Acct:[id number] Age/Sex: 54 / F ADM Date: 05/21/25 Loc: HO.MAMMO Attending Dr: Zulay Malcolm MD Ordering Physician: Zulay Malcolm MD Results: 2Be nign Findings Date of Service: 05/21/25 Follow Up: 1 Year From Orig inal Mammogram Procedure(s): MM tomosynthesis screening BI Accession Number(s): [id number] cc: Zulay Malcolm MD EXAMINATION: MM SCREENING [...] 05/31/25 1320 DD/ 0855 TD/TT: 05/21/25 0915 Clod Puller: Procedure Note Donotuseinterpreter, Image - 07/28/2025 [facility] [address] [place] [address] Mammography Report Signed Patient: Victoria Torres MMR#: [id number] 69 : 1970Acct:[id number] Age/Sex: 54 / FADM Date: 05/21/25 Loc: HO.MAMMO Attending Dr: Zulay Malcolm MD Ordering Physician: Zulay Malcolm MDResults: 2Be nign Findings Date of Service: 05/21/25Follow Up: 1 Year From Orig inal Mammogram Procedure(s): MM tomosynthesis screening BI Accession Number(s): [id number] cc: Zulay Malcolm MD EXAMINATION: MM SCREENING [...] 05/31/25 1320 DD/ 0855 TD/TT: 05/21/25 0915 Clod Puller: us Zulay Malcolm MD IMG BI PROCEDURES Final Result * (ABNORMAL) Lipid Panel with Reflex to Direct LDL (05/17/2025 2:50 PM EDT) Triglycerides 122 <150 mg/dL [facility] Comment:Desirable Triglyceri de: less than 150 mg/dLBorderline High Triglyceride 150-199 mg/dLHigh Triglyceride: 200-499 mg/dLVery High Triglyceride: greater than or equal to 5OO mg/dL Cholesterol 193 <200 mg/dL [facility] Comment:Desirable Cholestero l: less than 200 mg/dLBorderline High Cholesterol: 200-239 mg/dLHigh Cholesterol: greater than 239 mg/dL LDL Cholesterol Calculated 110(H) <100 mg/dL [facility] Comment:Desirable LDL: less than 100 mg/dLNear Optimal/Above Optimal LDL: 110- 129 mg/dLBorderline High LDL: 130-159 mg/dLHigh LDL: 160-189 mg/dLVery High LDL: greater than or equal to 190 mg/dL HDL Cholesterol 59 >40 mg/dL [facility] Comment:Desirable HDL: great er than 40 mg/dL Note: This HDL assay may give artificially low results in patients with liver disease. Blood 05/17/2025 2:50 PM EDT 05/17/2025 4:41 PM EDT us Zulay Malcolm MD LAB BLOOD ORDERABLES Fin al Result [facility] [address] [place] [phone] [phone] * Albumin, Random Urine W/Creatinine (05/17/2025 2:50 PM EDT) Creatinine, Urine 39.12 mg/dL [facility] Microalbumin Urine <5.0 mg/L [facility] Microalbum Creatinine Ratio Ur TNP <30 ug/mg cr [facility] Comment:Unable to calculate albumin/creatinine ratio due to lowmicroalbumin or creatinine result. Urine (Urine, Random) 05/17/2025 2:50 PM EDT 05/17/2025 4:41 PM EDT Zulay Malcolm MD LAB URINE ORDERABLES Fin al Result [facility] [address] [place] [phone] * (ABNORMAL) POCT HGB A1C (10/12/2024 3:19 PM EST) Pathologist [facility] Hemoglobin A1C 6.3(A) 4.0 - 6.0 % QC Media Lot # [id number] Lot# Expiration Date [id number] Blood 10/12/2024 3:19 PM EST Zulay Malcolm MD POINT OF CARE TEST ENTER /EDIT ORDERABLES Final Result * HPV mRNA E6/E7 (04/02/2019 9:59 AM EDT) Pathologist [facility] HPV mRNA E6/E7 Not Detected NOT DETECTED [facility] Comment: This test was performed using the APTIMA(R) HPV Assay ([employer] This assay detects E6/E7 viral messenger RNA (mRNA) from 14 high-risk HPV types (16,18,31,33,35,39,45,51, 52,56,58,59,66,68). For additional information please refer to: http://education.RealDeck.i-design Multimedia/faq/IIA607b5 (This link is being provided for informational/ educational purposes only.) The analytical performance characteristics of this assay have been determined by [employer] [place], [place]. The modifications have not been cleared or approved by the FDA. This assay has been validated pursuant to the CLIA regulations and is used for clinical purposes. Test Performed by [facility] [address] [address] Moncho Tom M.D., Ph.D., Director of Laboratories , [facility] [id number] Please note: Effective 07/16/2016, HPV testing will be performed using [employer] APTIMA test which targets mRNA. Detecting mRNA instead of DNA, as in older methods, offers significant improvements in specificity. 04/02/2019 9:59 AM EDT Zulay Malcolm MD HISTORICAL/NON ORDERABLE LABS Final Result [facility] [address] * Pap Smear (04/02/2019) Pap smear performed Historical Provider HEALTH MAINTENANCE Final Result from Last 3 Months or Most Recently Relevant to Health [place] [address] [place] [id number] Care Teams [employer] Teacher Relationship Specialty Start Date End Date Zulay Malcolm MD [address] [place] [address] PCP - General Family Medicine 11/13/16 Tony Jensen, DamionD [address] [place] [address] Pharmacist Internal Medicine 08/14/23
--- OUTSIDE RECORDS SUMMARY | 2025-09-01 20:21 | XMS_ITS | Encounter Summary ---
Author Organization [employer] Address [address] [facility] [address] [address] Care Team Providers Care Project Director Name Role Phone Faith Malcolm MD Primary Care Provider + Tony Jensen PharmD Unavailable [phone] Encounter Details Date Type Department Care Team (Latest Contact Info) Description 11/11/2019 Abstract [facility] CONVERSIONS Dental, Provider, DDS Social [...] on file documented as of this encounter Visit Diagnoses Not on filedocumented in this encounter Care Teams Project Director Relationship Specialty Start Date End Date Faith Malcolm MD [address] [place] [address] PCP - General Family Medicine 11/13/16 Tony Jensen, PharmD [address] [place], [place] [phone] Pharmacist Internal Medicine 08/14/23 documented as of this encounter
--- OUTSIDE RECORDS SUMMARY | 2025-09-01 20:21 | XMS_ITS | Encounter Summary ---
Author Organization [employer] Address [address] [facility] [address] [place] [address] Care Team Providers Care Cardiology Coordinator Name Role Phone Faith Malcolm MD Primary Care Provider + Tony Jensen PharmD Unavailable [phone] Encounter Details Date Type Department Care Team (Late st Contact Info) Description 07/23/2025 Results Follow-Up [facility] [address] [place], [place] [phone] Priscilla Tran FNP [address] [place] [address] Hepatitis C Viral RNA, Quantitative, Real-Time PCR, RPR (Monitor) with Reflex to Titer, HIV-1/2 Antigen and Antibodies, Fourth Generation, with Reflexes Social History Tobacco Use Types Packs/Day Years [...] documented as of this encounter Care Teams Cardiology Coordinator Relationship Specialty Start Date End Date Faith Malcolm MD [address] [place] [address] PCP - General Family Medicine 11/13/16 Tony Jensen, Nolan [address] [place] [address] Pharmacist Internal Medicine 08/14/23 documented as of this encounter
--- OUTSIDE RECORDS SUMMARY | 2025-09-01 20:21 | XMS_ITS | Encounter Summary ---
Author Organization [employer] Address [address] [facility] [address] [place] [address] Care Team Providers Care Rotor Casting Machine Operator Name Role Phone Faith Malcolm MD Primary Care Provider + Tony Jensen PharmD Unavailable [phone] Reason for Visit * Reason Comments Med Refill Encounter Details Date Type Department Care Team ([facility] st Contact Info) Description 11/04/2024 Refill [facility] [address] [place], [place] [phone] Faith Malcolm MD [address] [place], [place] [phone] Social History Tobacco Use Types Packs/Day Years [...] documented as of this encounter Care Teams Rotor Casting Machine Operator Relationship Specialty Start Date End Date Faith Malcolm MD [address] [place] [phone] PCP - General Family Medicine 11/13/16 Tony Jensen, Nolan [address] [place] [address] Pharmacist Internal Medicine 08/14/23 documented as of this encounter
--- OUTSIDE RECORDS SUMMARY | 2025-09-01 20:21 | XMS_ITS | Clinical Summary ---
Author Organization [facility] Address [address] [place] [address] Care Team Providers Care Reading Aide Name Role Phone JanMain sorenson CALLIE Primary Care Provider [phone] Source Comments PLEASE NOTE, if this patient [...] for gynecologic examination 01/16/2016 Overview (01/16/2016): Juliet MEDICAL RECORD CODER- 2 small fibroids per patient Family History [...] Plan of Treatment Not on file Insurance auctionPAL Care Teams Reading Aide Relationship Specialty Start Date End Date Main White NP [address] [place] [phone] [facility] - General 09/11/18
--- OUTSIDE RECORDS SUMMARY | 2025-09-01 20:21 | XMS_ITS | Encounter Summary ---
Author Organization [employer] Address [address] [facility] [address] [place] [address] Care Team Providers Care Catering Sales Manager Name Role Phone Faith Malcolm MD Primary Care Provider + Tony Jensen PharmD Unavailable [phone] Encounter Details Date Type Department Care Team (Latest Contact Info) Description 09/01/2025 Travel Social History Tobacco Use Types Packs/Day Years Used Date Smoking Tobacco: Never Smokeless Tobacco: Never Alcohol Use Standard Drinks/Week Comments Yes 0 (1 standard drink = 0.6 oz pur e alcohol) oca Alcohol Answer Date Recorded Frequency of Alcohol Consumption Not on file 02/03/2024 Average Number of Drinks Not on file 024 Frequency of Binge Drinking Not on file 0411/2023 Score 0 02/03/2024 Depression Answer Date Recorded [...] documented as of this encounter Care Teams Catering Sales Manager Relationship Specialty Start Date End Date Faith Malcolm MD [address] [place] [address] PCP - General Family Medicine 11/13/16 Tony Jensen, DamionD [address] [place] [address] Pharmacist Internal Medicine 08/14/23 documented as of this encounter
[2025-09-02 04:56] LABS: Bacterial Vaginosis PCR NEGATIVE (Negative); Candida Group PCR NOT DETECTED (Not Detect); Candida glab krusei PCR NOT DETECTED (Not Detect); Trichomonas vaginalis PCR NOT DETECTED (Not Detect)
[2025-09-02 05:20] LABS: CT PCR NOT DETECTED (Not Detect.); NG PCR NOT DETECTED (Not Detect.)
== END 2025-09-01 18:15 | disposition home or self-care (01) ==
LOC: HO.LNP 18:14
PROVIDERS: Visit Provider Registered Nurse
DX: N94.9 Unspecified condition associated with female genital organs and menstrual cycle (principal); Z20.2 Contact with and (suspected) exposure to infections with a predominantly sexual mode of transmission
CPT/HCPCS: 81515; 87491; 87591